=== PATIENT | male | born 1990 | race Caucasian/White ===

== ENCOUNTER 2021-12-04 22:51 | Inpatient (IN) ==
[2021-12-04] MEDS ORDERED: SODIUM CHLORIDE 0.9% 1000ML 1,000 ML IV ONE (23:36)
[2021-12-04] MEDS ORDERED: FAMOTIDINE 20MG IV PUSH 20 MG/5 ML SYR IV STA (23:36)
[2021-12-04] MEDS ORDERED: MULTI-VITAMIN INFUSION 10 ML, THIAMINE HCL 100 MG, FOLIC ACID 1 MG in SODIUM CHLORIDE 0... IV ONE (23:36)
--- NOTE | 2021-12-04 23:40 | Emergency Department Note ---
History of Present Illness General Chief complaint: Alcohol Withdrawal Time Seen by Provider: 12/04/21 23:21 Source: patient Mode of arrival: ambulatory Limitations: no limitations History of Present Illness Provider complaint: alcohol withdrawal This is a 31-year-old male presents the emergency department with concern for alcohol withdrawal. Patient states he has been drinking daily over the last 30 days predominantly hard liquor. Patient does have a history of alcohol abuse over the last 8 years. States his longest sober period was 75 days. Patient has not participated in any inpatient rehab. He states he has gone Alcoholics Anonymous. Patient has not had any inpatient hospitalization for alcohol wit hdrawal. He is uncertain if he has ever had a seizure as he states he has had very significant tremors at times and is also had hallucinations, and vomiting. Patient states his last drink was this afternoon in order to try and ivonne some of the withdrawal symptoms. He states he has been trying to cut back over the course of the last week. He states to the nausea and vomiting he has been unable to tolerate much in the way of oral intake. He estimates he had a total of 100 mL of Pedialyte over the course of today. Patient states he did have some blood with a bowel movement although attributes that to hemorrhoids stating his had this previously. He has not noted any black or bloody emesis. He states he has had fevers or chills. He has not had any hallucinations today. Patient admits to ongoing anxiety which is part of how he believes his alcohol abuse started. He states most recently he is also been trying to use CBD to help with anxiety and withdrawal symptoms. Patient denies any other use of recreational drugs. Pt seen during a time of high acuity and national emergency pandemic while wearing PPE. Home Medications Medication Instructions Recorded Confirmed Type escitalopram oxalate 10 mg tablet 0 mg PO DAILY 12/04/21 12/04/21 History (Lexapro) trazodone 100 mg tablet 0 mg PO HS 12/04/21 12/04/21 History Allergies Allergy/AdvReac Type Severity Reaction Status Date / Time No Known Allergies Allergy Verified 12/04/21 23:18 Past Med/Surg History Medical History (Updated 12/05/21 @ 09:09 by Lita Queen DO) Alcohol abuse Anxiety Social History Smoking Status: Current every day smoker Hx Alcohol Use: Yes Alcohol type: beer and hard liquor Hx Substance Use: Yes Last Used Substance: Just Prior to Arrival Substance Use Type Other:: cbd Preferred Language: Portuguese Directory Carrier Required: No Beliefs That Will Affect Care: None Current Living Situation: Alone Current Living Situation Comment: [facility] Feels Safe at Home: Yes Assistive Devices: None Review of Systems A total of 10 systems reviewed and were otherwise negative All systems reviewed & are unremarkable except as noted in HPI & below Physical Exam Vital Signs Vital Signs - 24 hr 12/04/21 23:02 12/04/21 23:45 12/05/21 00:00 Temperature 36.6 C Temperature Source Oral Pulse Rate 125 H 129 H 115 H Pulse Rate [Right Finger] Pulse Rate from SpO2 Sensor 127 H 116 H Pulse Rhythm [Right Finger] Respiratory Rate 20 21 24 Respiratory Depth Normal Blood Pressure 148/99 H 142/102 H 153/102 H Blood Pressure [Left Arm] Blood Pressure Mean 115 115 119 Blood Pressure Mean [Left Arm] Pulse Oximetry 99 98 98 Oxygen Delivery Method Room Air Sepsis Recent Fever Within 48 Hours No Sepsis New/Unexplained Change in Mental Status N/A Sepsis Action Taken by Nursing No Action Required 12/05/21 00:15 12/05/21 00:16 12/05/21 00:30 Temperature Temperature Source Pulse Rate 154 H 125 H 117 H Pulse Rate [Right Finger] Pulse Rate from SpO2 Sensor 154 H 128 H 117 H Pulse Rhythm [Right Finger] Respiratory Rate 19 23 17 Respiratory Depth Blood Pressure 138/109 H 147/107 H Blood Pressure [Left Arm] Blood Pressure Mean 118 120 Blood Pressure Mean [Left Arm] Pulse Oximetry 97 89 L 97 Oxygen Delivery Method Sepsis Recent Fever Within 48 Hours Sepsis New/Unexplained Change in Mental Status Sepsis Action Taken by Nursing 12/05/21 00:45 12/05/21 01:00 12/05/21 01:15 Temperature Temperature Source Pulse Rate 128 H 122 H 123 H Pulse Rate [Right Finger] 124 H Pulse Rate from SpO2 Sensor 127 H 121 H 122 H Pulse Rhythm [Right Finger] Regular Respiratory Rate 18 23 20 Respiratory Depth Normal Blood Pressure 130/97 155/81 H 148/80 H Blood Pressure [Left Arm] 143/87 H Blood Pressure Mean 108 105 102 Blood Pressure Mean [Left Arm] 105 Pulse Oximetry 98 96 96 Oxygen Delivery Method Room Air Sepsis Recent Fever Within 48 Hours Sepsis New/Unexplained Change in Mental Status Sepsis Action Taken by Nursing 12/05/21 01:30 12/05/21 01:45 12/05/21 02:02 Temperature Temperature Source Pulse Rate 120 H 128 H 112 H Pulse Rate [Right Finger] Pulse Rate from SpO2 Sensor 120 H 128 H Pulse Rhythm [Right Finger] Respiratory Rate 23 18 20 Respiratory Depth Blood Pressure 143/87 H 154/92 H Blood Pressure [Left Arm] Blood Pressure Mean 105 112 Blood Pressure Mean [Left Arm] Pulse Oximetry 95 98 Oxygen Delivery Method Sepsis Recent Fever Within 48 Hours Sepsis New/Unexplained Change in Mental Status Sepsis Action Taken by Nursing 12/05/21 02:15 12/05/21 02:16 12/05/21 02:30 Temperature Temperature Source Pulse Rate 110 H 110 H 110 H Pulse Rate [Right Finger] Pulse Rate from SpO2 Sensor 110 H 109 H 110 H Pulse Rhythm [Right Finger] Respiratory Rate 18 21 19 Respiratory Depth Blood Pressure 125/78 127/87 Blood Pressure [Left Arm] Blood Pressure Mean 93 100 Blood Pressure Mean [Left Arm] Pulse Oximetry 99 100 97 Oxygen Delivery Method Sepsis Recent Fever Within 48 Hours Sepsis New/Unexplained Change in Mental Status Sepsis Action Taken by Nursing 12/05/21 02:45 12/05/21 03:00 12/05/21 03:15 Temperature Temperature Source Pulse Rate 112 H 107 H 104 H Pulse Rate [Right Finger] Pulse Rate from SpO2 Sensor 114 H 107 H 105 H Pulse Rhythm [Right Finger] Respiratory Rate 18 18 25 H Respiratory Depth Blood Pressure 138/89 136/88 115/72 Blood Pressure [Left Arm] Blood Pressure Mean 105 104 86 Blood Pressure Mean [Left Arm] Pulse Oximetry 97 100 98 Oxygen Delivery Method Sepsis Recent Fever Within 48 Hours Sepsis New/Unexplained Change in Mental Status Sepsis Action Taken by Nursing 12/05/21 03:30 Temperature Temperature Source Pulse Rate 111 H Pulse Rate [Right Finger] Pulse Rate from SpO2 Sensor 107 H Pulse Rhythm [Right Finger] Respiratory Rate 14 Respiratory Depth Blood Pressure 132/92 Blood Pressure [Left Arm] Blood Pressure Mean 105 Blood Pressure Mean [Left Arm] Pulse Oximetry 99 Oxygen Delivery Method Sepsis Recent Fever Within 48 Hours Sepsis New/Unexplained Change in Mental Status Sepsis Action Taken by Nursing GENERAL: alert, unwell appearing, well nourished, mild distress, non-toxic EYE EXAM: normal conjunctiva, PERRL and EOM's grossly intact OROPHARYNX: no exudate, no erythema, lips, buccal mucosa, and tongue normal and mucous membranes are dry NECK: supple, no nuchal rigidity, no adenopathy, non-tender LUNGS: Clear to auscultation. Normal chest wall mechanics, no w/r/r HEART: no murmurs, S1 normal and S2 normal ABDOMEN: abdomen soft, generalized abdominal tenderness with palpation, normo- active bowel sounds, no masses, no rebound or guarding. BACK: Back is symmetrical on inspection and there is no deformity, no midline tenderness, no CVA tenderness. SKIN: no rashes and no bruising UPPER EXTREMITIES: upper extremities are grossly normal. FROM, nml pulses b/l. LOWER EXTREMITIES: No pitting edema. FROM, nml pulses b/l. NEURO EXAM: Normal sensorium, cranial nerves II-XII grossly intact, normal speec h, no gross weakness of arms, no gross weakness of legs. Gross sensation intact. Course Course 0125: Pt states medicine helps slightly. Still tachycardic. 0202: Patient states he is feeling slightly improved although is still tachycardic. 0250: Patient with persistent tachycardia and mild tremor. Heart rate is impro elaine compared to initial although still tachycardic. Vital signs otherwise stable. Patient aware of all results and is still agreeable for additional management of his alcohol withdrawal symptoms. 0300: Discussed with Dr. Esquivel for additional inpatient management. Administered Medications Chlordiazepoxide HCl (Chlordiazepoxide 25mg Starting Dose) 25 mg PO Q6H JOSE; Protocol Stop: 12/05/21 23:31 Last Admin: 12/05/21 05:32 Dose: 25 mg Documented by: [id number] Lactated Ringer's (Lr) 1,000 mls @ 100 mls/hr IV .Q10H JOSE Stop: 01/04/22 05:49 Last Admin: 12/05/21 06:38 Dose: 100 mls/hr Documented by: [id number] Lorazepam (Lorazepam 2 Mg/1 Ml Vial) 2 mg IV UD PRN; Protocol PRN Reason: EtOH Withdrawl AWSS Score 8,9 Stop: 01/04/22 05:49 Last Admin: 12/05/21 08:07 Dose: 2 mg Documented by: [id number] Admin: 12/05/21 07:04 Dose: 2 mg Documented by: [id number] Pantoprazole Sodium (Pantoprazole 40 Mg Tab) 40 mg PO BID [facility] Stop: 01/04/22 08:59 Last Admin: 12/05/21 08:07 Dose: 40 mg Documented by: [id number] Discontinued Medications Chlordiazepoxide HCl (Chlordiazepoxide Hcl 25 Mg Cap) 0 mg PO Q6H JOSE; Taper Stop: 12/07/21 05:49 Last Admin: 12/05/21 06:34 Dose: Not Given Documented by: [id number] Diazepam (Diazepam 5 Mg/Ml Inj 10ml Vial) 5 mg IV NOW STA Stop: 12/04/21 23:37 Last Admin: 12/04/21 23:47 Dose: 5 mg Documented by: [id number] Diazepam (Diazepam 5 Mg/Ml Inj 10ml Vial) 10 mg IV NOW STA Stop: 12/05/21 00:30 Last Admin: 12/05/21 00:38 Dose: 10 mg Documented by: [id number] Diazepam (Diazepam 5 Mg/Ml Inj 10ml Vial) 10 mg IV NOW STA Stop: 12/05/21 01:29 Last Admin: 12/05/21 01:40 Dose: 10 mg Documented by: [id number] Diazepam (Diazepam 5 Mg/Ml Inj 10ml Vial) 10 mg IV NOW STA Stop: 12/05/21 02:51 Last Admin: 12/05/21 03:38 Dose: 10 mg Documented by: [id number] Diazepam (Diazepam 5 Mg/Ml Inj 10ml Vial) 15 mg IV NOW STA Stop: 12/05/21 04:26 Last Admin: 12/05/21 04:50 Dose: 15 mg Documented by: [id number] Sodium Chloride (Nss 1000ml) 1,000 mls @ 999 mls/hr IV .Q1H1M ONE Stop: 12/05/21 00:36 Last Infusion: 12/04/21 23:59 Dose: 0 mls/hr Documented by: [id number] Admin: 12/04/21 23:51 Dose: 999 mls/hr Documented by: [id number] Famotidine (Pepcid 20mg Iv Push) 20 mg in 5 mls @ 2.5 mls/min IV NOW STA Stop: 12/04/21 23:37 Last Admin: 12/04/21 23:48 Dose: 2.5 mls/min Documented by: [id number] Multivitamins 10 ml/ Thiamine HCl 100 mg/ Folic Acid 1 mg/Sodium Chloride 1,011.2 mls @ 200 mls/hr IV .Q5H4M ONE Stop: 12/05/21 04:39 Last Infusion: 12/05/21 05:08 Dose: 0 mls/hr Documented by: [id number] Admin: 12/05/21 00:01 Dose: 200 mls/hr Documented by: [id number] Sodium Chloride (Nss 1000ml) 1,000 mls @ 999 mls/hr IV .Q1H1M ONE Stop: 12/05/21 02:28 Last Infusion: 12/05/21 03:00 Dose: 0 mls/hr Documented by: [id number] Admin: 12/05/21 01:42 Dose: 999 mls/hr Documented by: [id number] Phytonadione 2.5 mg/ Dextrose 50.25 mls @ 100.5 mls/hr IV ONE ONE Stop: 12/05/21 05:44 Last Infusion: 12/05/21 08:25 Dose: 0 mls/hr Documented by: [id number] Admin: 12/05/21 06:39 Dose: 100.5 mls/hr Documented by: [id number] Thiamine HCl 500 mg/ Sodium (Chloride) 55 mls @ 220 mls/hr IV NOW ONE Stop: 12/05/21 05:29 Last Infusion: 12/05/21 07:03 Dose: 0 mls/hr Documented by: [id number] Admin: 12/05/21 06:39 Dose: 220 mls/hr Documented by: [id number] Sodium Chloride (Nss 1000ml) 1,000 mls @ 125 mls/hr IV .Q8H JOSE Stop: 01/04/22 05:14 Last Admin: 12/05/21 06:34 Dose: Not Given Documented by: [id number] Critical Care Time Critical Care Time: Yes Total Critical Care Time: 45 Critical care of 45 min performed to assess and manage high likelihood of life- threatening alcohol withdrawal, involving labs and imaging performed with assessment to evaluate alcohol withdrawal diagnosis with frequent reassessment. This time includes bedside time, treatment discussions with patient/family/consultants, documentation time and excludes procedure time. Medical Decision Making Differential Diagnosis Differential diagnosis includes etiologies such as alcohol intoxication, toxicol ogic, infection, hypoglycemia, electrolyte abnormalities, cardiac sources, intracerebral event, neurologic, as well as others were entertained. Medical Records Attestation: I reviewed the patient's medical records. Home Medications Current Medication List: was personally reviewed by me Laboratory Data Attestation: I reviewed the patient's lab results. Result diagrams: 12/05/21 07:19 12/05/21 07:19 Lab Results 12/04/21 12/04/21 12/04/21 Range/Units 23:20 23:20 23:20 WBC 6.40 (4.8-10.8) K/uL RBC 5.84 (4.7-6.1) M/uL Hgb 18.8 H (14.0-18.0) g/dL Hct 51.1 (42-52) % MCV 87.5 (80-100) fL MCH 32.2 (25-34) pg MCHC 36.8 H (32-36) g/dL RDW Std Deviation 42.7 (36.4-46.3) fL RDW Coeff of Teresita 13.3 (11.5-14.5) % Plt Count 261 (130-400) K/uL MPV 11.6 H (7.4-10.4) fL Immature Gran % (Auto) 0.0 % Neut % (Auto) 42.9 % Lymph % (Auto) 43.3 % [place] % (Auto) 13.6 % Eos % (Auto) 0.0 % Baso % (Auto) 0.2 % Neut # (Auto) 2.75 (1.4-6.5) K/uL Lymph # (Auto) 2.77 (1.2-3.4) K/uL [place] # (Auto) 0.87 H (0.11-0.59) K/uL Eos # (Auto) 0.00 (0-0.5) K/uL Baso # (Auto) 0.01 (0-0.2) K/uL Immature Gran # (Auto) 0.00 (0.00-0.02) K/uL PT 15.3 H (9.0-12.0) Seconds INR 1.5 H (0.9-1.1) Sodium 127 L (136-145) mmol/L Potassium 3.6 (3.5-5.1) mmol/L Chloride 82 L (98-107) mmol/L Carbon Dioxide 29 (21-32) mmol/L Anion Gap 16 H (3-11) BUN 16 (6-23) mg/dl Creatinine 1.09 (0.6-1.4) mg/dl Est Cr Clr Drug Dosing 132.6 ml/min Est GFR ( Amer) 105.7 ml/min Est GFR (Non-Af Amer) 91.2 ml/min BUN/Creatinine Ratio 14.7 (10-20) Glucose 203 H (70-99(Fasting)) mg/dl Calcium 9.1 (8.5-10.1) mg/dl Magnesium 2.3 (1.7-2.4) mg/dl Total Bilirubin 2.9 H (0.2-1.0) mg/dl AST 173 H (13-39) U/L ALT 215 H (7-52) U/L Alkaline Phosphatase 109 H (34-104) U/L Troponin I High Sens 12.2 (0-20) pg/ml Total Protein 6.7 (6.0-8.3) gm/dl Albumin 3.7 (3.4-5.0) gm/dl Globulin 3.0 (2.5-4.0) gm/dl Albumin/Globulin Ratio 1.2 (0.9-2) Lipase 40 (11-82) U/L TSH (0.300-4.500) uIu/ml Urine Color Urine Appearance (Clear) Urine pH (4.5-7.5) Ur Specific [place] (1.000-1.030) Urine Protein (Negative) Urine Glucose (UA) (Negative) Urine Ketones (Negative) Urine Blood (Negative) Urine Nitrite (Negative) Urine Bilirubin (Negative) Urine Urobilinogen (Negative) Ur Leukocyte Esterase (Negative) Urine WBC (Auto) (0-5) /hpf Urine RBC (Auto) (0-4) /hpf U Hyaline Cast (Auto) (0-5) /lpf U Epithel Cells (Auto) (0-5) /lpf Urine Bacteria (Auto) (Negative) Urine Opiates Screen (Neg) Ur Methadone, Qual (Neg) Urine Barbiturates (Neg) Ur Phencyclidine (PCP) (Neg) U Amphetamin/Meth Scrn (Neg) MDMA (Ecstasy) Screen (Neg) U Benzodiazepines Scrn (Neg) Ur Cocaine Metabolite (Neg) U Marijuana (THC) Screen (Neg) Ethyl Alcohol mg/dL (<10.0) mg/dl 12/04/21 12/04/21 12/05/21 Range/Units 23:20 23:20 00:15 WBC (4.8-10.8) K/uL RBC (4.7-6.1) M/uL Hgb (14.0-18.0) g/dL Hct (42-52) % MCV (80-100) fL MCH (25-34) pg MCHC (32-36) g/dL RDW Std Deviation (36.4-46.3) fL RDW Coeff of Teresita (11.5-14.5) % Plt Count (130-400) K/uL MPV (7.4-10.4) fL Immature Gran % (Auto) % Neut % (Auto) % Lymph % (Auto) % [place] % (Auto) % Eos % (Auto) % Baso % (Auto) % Neut # (Auto) (1.4-6.5) K/uL Lymph # (Auto) (1.2-3.4) K/uL [place] # (Auto) (0.11-0.59) K/uL Eos # (Auto) (0-0.5) K/uL Baso # (Auto) (0-0.2) K/uL Immature Gran # (Auto) (0.00-0.02) K/uL PT (9.0-12.0) Seconds INR (0.9-1.1) Sodium (136-145) mmol/L Potassium (3.5-5.1) mmol/L Chloride (98-107) mmol/L Carbon Dioxide (21-32) mmol/L Anion Gap (3-11) BUN (6-23) mg/dl Creatinine (0.6-1.4) mg/dl Est Cr Clr Drug Dosing ml/min Est GFR ( Amer) ml/min Est GFR (Non-Af Amer) ml/min BUN/Creatinine Ratio (10-20) Glucose (70-99(Fasting)) mg/dl Calcium (8.5-10.1) mg/dl Magnesium (1.7-2.4) mg/dl Total Bilirubin (0.2-1.0) mg/dl AST (13-39) U/L ALT (7-52) U/L Alkaline Phosphatase (34-104) U/L Troponin I High Sens (0-20) pg/ml Total Protein (6.0-8.3) gm/dl Albumin (3.4-5.0) gm/dl Globulin (2.5-4.0) gm/dl Albumin/Globulin Ratio (0.9-2) Lipase (11-82) U/L TSH 1.257 (0.300-4.500) uIu/ml Urine Color Urine Appearance (Clear) Urine pH (4.5-7.5) Ur Specific [place] (1.000-1.030) Urine Protein (Negative) Urine Glucose (UA) (Negative) Urine Ketones (Negative) Urine Blood (Negative) Urine Nitrite (Negative) Urine Bilirubin (Negative) Urine Urobilinogen (Negative) Ur Leukocyte Esterase (Negative) Urine WBC (Auto) (0-5) /hpf Urine RBC (Auto) (0-4) /hpf U Hyaline Cast (Auto) (0-5) /lpf U Epithel Cells (Auto) (0-5) /lpf Urine Bacteria (Auto) (Negative) Urine Opiates Screen Neg (Neg) Ur Methadone, Qual Neg (Neg) Urine Barbiturates Neg (Neg) Ur Phencyclidine (PCP) Neg (Neg) U Amphetamin/Meth Scrn Neg (Neg) MDMA (Ecstasy) Screen Neg (Neg) U Benzodiazepines Scrn Neg (Neg) Ur Cocaine Metabolite Neg (Neg) U Marijuana (THC) Screen Pos H (Neg) Ethyl Alcohol mg/dL 222.4 H (<10.0) mg/dl 12/05/21 Range/Units 00:15 WBC (4.8-10.8) K/uL RBC (4.7-6.1) M/uL Hgb (14.0-18.0) g/dL Hct (42-52) % MCV (80-100) fL MCH (25-34) pg MCHC (32-36) g/dL RDW Std Deviation (36.4-46.3) fL RDW Coeff of Teresita (11.5-14.5) % Plt Count (130-400) K/uL MPV (7.4-10.4) fL Immature Gran % (Auto) % Neut % (Auto) % Lymph % (Auto) % [place] % (Auto) % Eos % (Auto) % Baso % (Auto) % Neut # (Auto) (1.4-6.5) K/uL Lymph # (Auto) (1.2-3.4) K/uL [place] # (Auto) (0.11-0.59) K/uL Eos # (Auto) (0-0.5) K/uL Baso # (Auto) (0-0.2) K/uL Immature Gran # (Auto) (0.00-0.02) K/uL PT (9.0-12.0) Seconds INR (0.9-1.1) Sodium (136-145) mmol/L Potassium (3.5-5.1) mmol/L Chloride (98-107) mmol/L Carbon Dioxide (21-32) mmol/L Anion Gap (3-11) BUN (6-23) mg/dl Creatinine (0.6-1.4) mg/dl Est Cr Clr Drug Dosing ml/min Est GFR ( Amer) ml/min Est GFR (Non-Af Amer) ml/min BUN/Creatinine Ratio (10-20) Glucose (70-99(Fasting)) mg/dl Calcium (8.5-10.1) mg/dl Magnesium (1.7-2.4) mg/dl Total Bilirubin (0.2-1.0) mg/dl AST (13-39) U/L ALT (7-52) U/L Alkaline Phosphatase (34-104) U/L Troponin I High Sens (0-20) pg/ml Total Protein (6.0-8.3) gm/dl Albumin (3.4-5.0) gm/dl Globulin (2.5-4.0) gm/dl Albumin/Globulin Ratio (0.9-2) Lipase (11-82) U/L TSH (0.300-4.500) uIu/ml Urine Color [place] Urine Appearance Cloudy A (Clear) Urine pH 8.5 H (4.5-7.5) Ur Specific [place] 1.018 (1.000-1.030) Urine Protein Negative (Negative) Urine Glucose (UA) Negative (Negative) Urine Ketones Negative (Negative) Urine Blood Negative (Negative) Urine Nitrite Negative (Negative) Urine Bilirubin Negative (Negative) Urine Urobilinogen Negative (Negative) Ur Leukocyte Esterase Trace H (Negative) Urine WBC (Auto) 0 (0-5) /hpf Urine RBC (Auto) 0-4 (0-4) /hpf U Hyaline Cast (Auto) 1-5 (0-5) /lpf U Epithel Cells (Auto) 0-5 (0-5) /lpf Urine Bacteria (Auto) Negative (Negative) Urine Opiates Screen (Neg) Ur Methadone, Qual (Neg) Urine Barbiturates (Neg) Ur Phencyclidine (PCP) (Neg) U Amphetamin/Meth Scrn (Neg) MDMA (Ecstasy) Screen (Neg) U Benzodiazepines Scrn (Neg) Ur Cocaine Metabolite (Neg) U Marijuana (THC) Screen (Neg) Ethyl Alcohol mg/dL (<10.0) mg/dl ECG Data Attestation: I personally reviewed and interpreted this ECG as follows: Indication: + vomiting Rate (beats per minute): 113 Rhythm: + sinus tachycardia ECG Intervals/blocks: + Normal QRS and + Normal QT ECG [place]: + Normal ECG ST segments: + Nonspecific ST abnormalities MDM Narrative An order was placed for continuous cardiac monitoring. The monitor shows a rate of _126_ with _sinus tachycardia rhythm. This is a 31 yo who presents emergency department with concern for alcohol wi thdrawal. Patient with obvious clinical symptoms of alcohol withdrawal while still intoxicated based on labs. Labs drawn and sent and did reveal an elevated INR as well as likely alcoholic hepatitis. Patient had no recurrent vomiting while in the emergency room. Patient was given multiple doses of IV Valium to help begin to control his symptoms. He was provided with IV fluid rehydration due to reported poor intake over the last 3 days. Patient also given IV banana bag. No other significant electrolyte abnormalities noted. No other ectopy or dysrhythmia on telemetry. I do not suspect occult infection. Case discussed with hospitalist for additional evaluation and management. Impression & Plan Alcohol withdrawal, Alcohol abuse, Alcoholic hepatitis, Hyponatremia, Elevated INR, Alcoholic intoxication Discharge Plan Visit Data Chief Complaint: Alcohol Withdrawal ED Provider: Lita Queen Discharge Problem: Alcohol withdrawal, Alcohol abuse, Alcoholic hepatitis, Hyponatremia, Elevated INR, Alcoholic intoxication Patient Disposition: Admitted As Inpatient Discharge Instructions Interventions: ED Discharge Assessment Last Done: 12/05/21 05:35 Discharge Problem: Alcohol withdrawal Qualifiers: Complication of substance-induced condition: with unspecified complication Qualified Code(s): F10.239 - Alcohol dependence with withdrawal, unspecified Alcoholic hepatitis Qualifiers: Ascites presence: unspecified Qualified Code(s): K70.10 - Alcoholic hepatitis without ascites Alcoholic intoxication Qualifiers: Complication of substance-induced condition: uncomplicated Qualified Code(s): F10.920 - Alcohol use, unspecified with intoxication, uncomplicated
[2021-12-04 23:58] LABS: Basophils # (auto) 0.01 K/uL (0-0.2); Basophils % (auto) 0.2 %; Hematocrit (blood only) 51.1 % (42-52); Hemoglobin 18.8 g/dL (14.0-18.0); Lymphocytes # (auto) 2.77 K/uL (1.2-3.4); Lymphocytes % (auto) 43.3 %; Mean Corpuscular Hemoglobin 32.2 pg (25-34); Mean Corpuscular Hgb Conc 36.8 g/dL (32-36); Mean Corpuscular Volume 87.5 fL (80-100); Mean Platelet Volume 11.6 fL (7.4-10.4); Monocytes # (auto) 0.87 K/uL (0.11-0.59); Monocytes % (auto) 13.6 %; Neutrophils # (auto) 2.75 K/uL (1.4-6.5); Neutrophils % (auto) 42.9 %; Platelet Count 261 K/uL (130-400); RDW Coefficient of Variation 13.3 % (11.5-14.5); RDW Standard Deviation 42.7 fL (36.4-46.3); Red Blood Count 5.84 M/uL (4.7-6.1)
[2021-12-05 00:01] LABS: INR 1.5 (0.9-1.1); Prothrombin Time 15.3 Seconds (9.0-12.0)
[2021-12-05 00:15] LABS: Albumin Globulin Ratio 1.2 (0.9-2); Albumin Level 3.7 gm/dl (3.4-5.0); BUN Creatinine Ratio 14.7 (10-20); Bilirubin,Total 2.9 mg/dl (0.2-1.0); Calcium 9.1 mg/dl (8.5-10.1); Creatinine Clr Calc Pharmacy 132.6 ml/min; Est GFR (African American) 105.7 ml/min; Est GFR (Non-African American) 91.2 ml/min; Magnesium 2.3 mg/dl (1.7-2.4); Potassium 3.6 mmol/L (3.5-5.1); Total Protein 6.7 gm/dl (6.0-8.3); Troponin I High Sensitivity 12.2 pg/ml (0-20)
[2021-12-05 00:40] LABS: Appearance Urine Cloudy (Clear); Bacteria Urine Automated Negative (Negative); Bilirubin Urine Negative (Negative); Blood Urine Negative (Negative); Color Urine Orange; Epithelial Cell Urine Auto 0-5 /lpf (0-5); Glucose Urine UA Negative (Negative); Ketones Urine Negative (Negative); Leukocyte Esterase Urine Trace (Negative); Nitrite Urine Negative (Negative); Protein Urine Negative (Negative); RBC Urine Automated 0-4 /hpf (0-4); Specific Gravity Urine 1.018 (1.000-1.030); Urobilinogen Urine Negative (Negative); WBC Urine Automated 0 /hpf (0-5); pH Urine 8.5 (4.5-7.5)
[2021-12-05 01:07] LABS: Amphetamines+Metham, Urine Neg (Neg); Barbiturates, Urine Neg (Neg); Benzodiazepine, Urine Neg (Neg); Cocaine, Urine Neg (Neg); MDMA (Ecstacy), Urine Neg (Neg); Methadone, Urine Neg (Neg); Opiate, Urine Neg (Neg); Phencyclidine, Urine Neg (Neg)
[2021-12-05] MEDS ORDERED: SODIUM CHLORIDE 0.9% 1000ML 1,000 ML IV ONE (01:28)
--- NOTE | 2021-12-05 03:19 | History & Physical Report ---
Date of Service December 05, 2021 Assessment & Plan (1) Alcohol withdrawal: Plan: This is a 31-year-old male with a history of alcohol abuse who presents to [facility] for evaluation of alcohol withdrawal in the context of 10 days of weening from ~17-20 drinks/day to 10-15 drinks/day. In the ED, he was minimally responsive to high doses of Valium. He was also found to have laboratory evidence of alcoholic hepatitis. Given his high risk for DTs and severe EtOH withdrawal, he will be transferred to ICU. Alcohol Withdrawal 10 days worth of cutting down from approx. 17-20 drinks/day --> 10-15 drinks/day; last drink 12/04/21 at 1800 Presented with significant symptoms of alcohol withdrawal, including tremors, diaphoresis, anxiety, hypertension, tachycardia In the ED, symptoms and vital signs were minimally responsive to high doses of Valium (>45mg given) Patient is high risk for severe alcohol withdrawal and delirium tremens with his consumption history and present symptoms Continue Librium taper (liver disease dosing for now), AWSS Ativan IV prn protocol for now Transfer to ICU for further monitoring, possible sedation/drip Daily folate, thiamine, multivitaminmonitor BMP, mag, Phos Will require further discussion regarding rehabilitation, long-term treatment for alcohol withdrawal including naltrexone and other agents, when appropriate (2) Alcoholic hepatitis: Plan: On admission, appreciated to have TBili 2.9, ALT 215, AST 173, ALP 109, lipase normal at 40, platelet 261, INR 1.5, albumin 3.7, Na 127, Cr 1.09 In the context of significant alcohol use over the last month, labs and history of nausea, vomiting consistent with acute hepatitis Nickdrey 25 -- does not meet criteria for steroids or pentoxifylline at present MELD 24; Child Schuler 6 (Class A) Check ultrasound right upper quadrant Monitor CMP, INR Judicious use of hepatotoxic medications Give thiamine 500mg IV x 1 now, give vitamin K 2.5mg IV x 1 now At present, abdominal pain most likely consistent with alcoholic hepatitis. Lipase negative. If worsening despite ongoing therapy, may wish to obtain ultrasound/CT for pancreatic evaluation. (3) Hyponatremia: Plan: Clinically appears dry on exam. No evidence of hypervolemia. Suspect secondary to hypovolemia/poor p.o. intake in the setting of alcohol abuse, as above. Hepatitis may also be contributing. Continue fluid resuscitation If hyponatremia does not improve despite fluid resuscitation, can consider calculating FENa and obtaining Sosm, Uosm (4) Anxiety: Plan: Hold home medications while acute episode is resolving. Continue benzodiazepine therapy, as above Following resolution of his acute issues, will require further investigation/discussion about his anxiety and current management. He mentioned to ED provider that alcohol use is the way he calms his anxiety. (5) Elevated INR: Plan: Insetting of suspected alcoholic hepatitis/transaminitis Give vitamin K 2.5 mg IV X1, can consider further doses as needed Monitor on daily labs Plan: Code: full code Diet: NPO PPX: Contraindicated in setting of coagulopathy ; Protonix 40 daily Dispo: ICU History of Present Illness Primary Care Provider: ,JOAN PCP This is a 31-year-old male with a history of alcohol abuse who presents to [facility] for evaluation of alcohol withdrawal. Patient says that he has a penitentiary history of issues with alcohol (>8 years). Patient says that over the last 10 days, he is been trying to wean himself off of alcohol. He says at the beginning of the month, his baseline was consuming about 750 cc rye whiskey per day (17 drinks); he then wean to 325 cc rye whiskey per day (about 9 drinks), thereafter to 3-4 four locos (15-20 standard drinks), followed by (within the last 10 days) ~6 twisted teas (5% EtOH) / day with some four lokos intermixed and Guiness beer. His last drink was 12/04/2021 at 1800. He says he has consumed CBD oil over this time as well. No recreational drugs. Over the last 10 days, he does report that he has had intermittent nausea with vomiting. He denies hematemesis. Does say that he has had waxing and waning abdominal pain associated with his drinking. He has not been able to keep much down because of the nausea. Patient also reports that he did have a single bowel movement with some blood intermixed yesterday, but he has had this before from hemorrhoidal source. At present, his most irritating symptoms are the tremor and nausea. He denies any descriptions of hallucinations at present. He does endorse a history of hallucinations with alcohol withdrawal in the past. He denies any formal history of alcohol withdrawal seizures. He denies being hospitalized in the past for withdrawal. He has attended Alcoholic Anonymous in the past. To the emergency physician, he stated that his alcohol abuse likely started as a result of his anxiety. His longest sober period was approx. 75 days. In the ED, patient found to be tachycardic to the 120s, with regular respiratory rate, hypertension to 140/80, saturating appropriately on room air. On admission, patient found to have hemoglobin 18.8, MCV 88, INR 1.5, sodium 127/CL 82, anion gap 16, glucose 203, total bilirubin 2.9, AST 173, ALT 215, ALP 109, albumin 3.7. Urine is orange and cloudy in appearance with trace leuk esterase, negative red blood cells, pH 8.5. Urine THC resulted positive. Alcohol level on admission was 222. He received a total of 45 mg of diazepam in the ED with minimal relief of symptoms and persistent ongoing tachycardia. Given his extensive drinking history, poor response to diazepam, and high risk for DTs, attending physician did speak with on-call heading maker, who accepted patient to ICU. Allergies Allergy/AdvReac Type Severity Reaction Status Date / Time No Known Allergies Allergy Verified 12/04/21 23:18 Home Medications Medication Instructions Recorded Confirmed Type escitalopram oxalate 10 mg tablet 0 mg PO DAILY 12/04/21 12/04/21 History (Lexapro) trazodone 100 mg tablet 0 mg PO HS 12/04/21 12/04/21 History Past Med/Surg History Medical History (Updated 12/05/21 @ 06:36 by GEO Dennison) Alcohol abuse Anxiety Social History Smoking Status: Current every day smoker Hx Alcohol Use: Yes Alcohol type: beer and hard liquor Hx Substance Use: Yes Last Used Substance: Just Prior to Arrival Substance Use Type Other:: cbd Preferred Language: Surinamese 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 HEENT: NCAT. - Eyes - Sclera are white, anicteric, and without injection. PERRL. - Mouth - MMM with no tonsillar edema or exudates. - Neck - no JVD. Cardiac: Tachycardic with regular rhythm; S1 and S2 present with no murmurs, rubs, or gallops. Pulmonary: Good respiratory effort with symmetric expansion of the chest. No use of accessory muscles. Lungs were clear to auscultation bilaterally with no crackles or wheezes. Abdominal: Normoactive bowel sounds. Abdomen was soft, nondistended, and mildly TTP in the RLQ. Oklee negative. Extremities: Upper and lower extremities are warm and well perfused. Radial and dorsalis pedis pulses were 2+ b/l. Results & Data Results & Data ([facility]) Vital Signs (Past 12 Hours) Vital Signs Temp Pulse Pulse Resp BP BP Pulse Ox 12/05/21 01:00 124 H 18 143/87 H 93 12/04/21 23:02 36.6 C 125 H 20 148/99 H 99 Supervising Physician Co-Signing Physician Notes Patient seen and examined, chart reviewed, case discussed with Dr. Yanes and I agree with the assessment/plan as above. Still tremulous, tachycardic. Has received Valium x 45mg IV Admit to MICU Continue Benzos Thiamine Remainder as above Resident Activity Tracking Resident Involvement: Resident Care Provided Care Provided: Adult Hospital Medicine
[2021-12-05] MEDS ORDERED: ACETAMINOPHEN 325 MG TAB PO PRN (03:39)
[2021-12-05] MEDS ORDERED: chlordiazePOXIDE ALCOHOL WITHDRAWL 25MG PO STA (03:48)
--- NOTE | 2021-12-05 04:30 | Billing Data ---
Date of Service December 05, 2021 Coding Level of Care Code 77154 Initial Inpt Care Lvl 2
[2021-12-05] MEDS ORDERED: PHYTONADIONE 2.5 MG in DEXTROSE 5% 50 ML IV ONE (05:15)
[2021-12-05] MEDS ORDERED: THIAMINE HCL 500 MG in SODIUM CHLORIDE 0.9% 50 ML IV ONE (05:15)
[2021-12-05] MEDS ORDERED: SODIUM CHLORIDE 0.9% 1000ML 1,000 ML IV SCH (05:15)
[2021-12-05] MEDS: CHLORDIAZEPOXIDE 25MG STARTING DOSE PO SCH ×3 (05:32→17:47)
[2021-12-05] MEDS ORDERED: ATIVAN IV ALCOHOL WITHDRAWL IV PRN (05:50)
[2021-12-05] MEDS ORDERED: chlordiazePOXIDE HCl 25 MG CAP PO SCH (05:50)
[2021-12-05] MEDS ORDERED: LORazepam 2 MG/1 ML VIAL IV PRN (05:50)
--- NOTE | 2021-12-05 06:25 | Critical Care Consultation ---
Date of Consultation December 05, 2021 Assessment & Plan (1) Alcohol withdrawal: Impression: 31-year-old male with 8-year history of alcohol abuse presents to the ICU and alcohol withdrawal and acute alcoholic hepatitis. Patient experiencing refractory DTs and transferred to the ICU for further management. Neuro - Alcohol withdrawalpatient experiencing refractory DTs after requiring high-dose Valium in the ED with continued DT symptoms -Received banana bag in ED. Continue thiamine, multivitamin, folate - continue RHYS S with IV Ativan, Librium. If DTs persist will add additional Precedex -Seizure precautions -Monitor in ICU for now Cardiac - Sinus tachycardialikely secondary to alcohol withdrawal with the patient's heart rate in the low 100s. Continue to monitor on telemetry for now Respiratory - No history of pulmonary disease and patient maintaining oxygen saturation on room air without labored breathing. Continuous monitoring on pulse ox for now GI - Alcoholic gastritispatient with complaints of abdominal pain and vomiting associated with drinking alcohol. Denies hematemesis. Started on PPI. Keep n.p.o. for now Acute alcoholic hepatitispatient with elevated LFTs, bilirubin with right upper quadrant abdominal pain with palpation -Mild jaundice in the patient's sclera noted on exam -Ammonia pending -Did encourage patient to completely abstain from further alcohol consumption. Patient states he would like to stop drinking and would like to attend rehab after discharge. Case management consulted -MELD 24 -Lipase within normal limits -Received vitamin K 2.5 mg IV in the ED -Liver ultrasound pending -Continue to trend LFTs and INR for now RENAL/LYTES - Creatinine within normal limits, monitor routine BMPs and replete electrolytes as indicated Hyponatremiamild, patient with sodium 127 likely secondary to liver failure/alcohol dependence. Continue with NSS at 125 mL/h monitor - Strict I's and O's ENDO - No history of diabetes or thyroid disease. ICU hyperglycemic protocol HEME - H&H stable, monitor routine CBCs ID - No indication for infectious process at this time LINES/IV ACCESS - Peripheral IVs DVT PROPHYLAXIS - SCDs Thank you for allowing us to participate in the care of this patient. Please refer to my attending physician's documentation for any further recommendations. (2) Hyponatremia: (3) Alcoholic hepatitis: (4) Anxiety: (5) Alcohol abuse: (6) Elevated INR: (7) Alcoholic gastritis: Supervising Physician Co-Signing Physician Notes Patient seen and examined. Discussed with CC BRADEN and on MDR with bedside CC RN as well as with FP resident. Agree with AP as noted. Patient presented with acute alcohol intoxication. Is too early in his clinical course to exhibit significant alcohol withdrawal. There was concern that he would require escalating doses of benzodiazepines or potential alternative medications which prompted admission to the ICU. He is hemodynamically stable. This morning he is awake alert and conversant. He is able to provide appropriate history and is oriented to person place and time. No evidence of autonomic instability. We will continue to monitor at this point time. Judicious benzodiazepines as needed. The patient's risk of alcohol withdrawal will peak within the next 48 to 72 hours. Continue thiamine and folate. Will calculate his discriminant score to assess whether Pentoxil filing or adjuvant steroids may be warranted. Hepatitis serologies. May need GI consultation. Elevated lactate likely secondary to impaired lactate clearance due to hepatic dysfunction. No indication for antimicrobials currently Suspect the patient can likely transfer to the floor later this afternoon or tomorrow depending on clinical course. History of Present Illness Attending Physician: Patricia Esquivel DO History of Present Illness Patient is a 31-year-old male with past medical history of alcohol abuse who presented to the emergency department earlier this evening with worsening symptoms of alcohol withdrawal. Patient states that he drank 2 beers at 6 PM yesterday evening, and that he is recently try to wean back from his normal daily intake of 15-20 drinks, primarily beer. Patient states that he was previously drinking whiskey, but switched to beer due to abdominal pain and vomiting. Patient states that he is had intermittent nausea and vomiting over the past week. He claims he went to AA meetings approximately 2 months ago after sustaining from alcohol and going through withdrawals in which he became jaundiced. I was notified by the primary team that he had received high doses of Valium in the ED and was still exhibiting symptoms of DTs and lab work consistent with acute alcoholic hepatitis. Patient is now being transferred to ICU for further management at this time. On arrival to the ICU the patient is still alert and oriented and denies any hallucinations. He does have significant tremors and appears very anxious. Currently he denies any headache, dizziness, recent fevers, sore throat, cough, shortness of breath, chest pain or palpitations or swelling in hands and feet. He does report significant abdominal pain with palpation to the right upper quadrant Allergies Allergy/AdvReac Type Severity Reaction Status Date / Time No Known Allergies Allergy Verified 12/04/21 23:18 Home Medications Medication Instructions Recorded Confirmed Type escitalopram oxalate 10 mg tablet 0 mg PO DAILY 12/04/21 12/04/21 History (Lexapro) trazodone 100 mg tablet 0 mg PO HS 12/04/21 12/04/21 History Patient History Medical History (Updated 12/05/21 @ 09:09 by Lita Queen DO) Alcohol abuse Anxiety Social History Smoking Status: Current every day smoker Hx Alcohol Use: Yes Alcohol type: beer and hard liquor Hx Substance Use: Yes Last Used Substance: Just Prior to Arrival Substance Use Type Other:: cbd Preferred Language: Cameroonian Senior Applications Developer Required: No Beliefs That Will Affect Care: None Current Living Situation: Alone Current Living Situation Comment: hotel Feels Safe at Home: Yes Assistive Devices: None Review of Systems Review of Systems: All systems reviewed & are unremarkable except as noted in HPI & below Physical Exam Constitutional: cooperative and + diaphoretic; + uncomfortable Eyes: Jaundiced sclera ENMT: external ear and nose normal, oropharynx normal Neck: trachea midline, no thyromegaly Respiratory: normal respiratory effort, lungs clear to auscultation Cardiovascular: Rate/Rhythm: regular rhythm and + tachycardic Heart Sounds: normal S1 and normal S2 Vessels: no JVD Extremities: no edema Gastrointestinal (Abdomen): Inspection/Auscultation: abdomen not distended and no abdominal edema Bowel sounds present all 4 quadrants. Abdomen tender to light palpation in the right upper quadrant. Musculoskeletal: no cyanosis or clubbing, extremities motor strength 5/5 Skin: no rashes, warm and dry Neurologic: PERRL, EOMI, accommodation nl, no face palsy, no dysarthria Psychiatric: Orientation: oriented x 3 Eye Contact: + fair eye contact Motor Behavior: + psychomotor agitation Speech: + pressured speech Affect: + anxious affect Results & Data Results & [facility] ([facility]) Vital Signs (Past 12 Hours) Vital Signs Temp Pulse Pulse Resp BP BP Pulse Ox 12/05/21 05:30 109 H 22 135/92 96 12/05/21 05:15 111 H 22 135/97 98 12/05/21 05:00 104 H 19 143/105 H 99 12/05/21 04:45 119 H 17 97 12/05/21 04:31 109 H 19 189/129 H 86 L 12/05/21 04:30 103 H 14 100 12/05/21 04:15 108 H 18 161/111 H 99 12/05/21 04:00 106 H 15 156/123 H 97 12/05/21 03:47 111 H 21 96 12/05/21 03:30 111 H 14 132/92 99 12/05/21 03:15 104 H 25 H 115/72 98 12/05/21 03:00 107 H 18 136/88 100 12/05/21 02:45 112 H 18 138/89 97 12/05/21 02:30 110 H 19 127/87 97 12/05/21 02:16 110 H 21 125/78 100 12/05/21 02:15 110 H 18 99 12/05/21 02:02 112 H 20 12/05/21 01:45 128 H 18 154/92 H 98 12/05/21 01:30 120 H 23 143/87 H 95 12/05/21 01:15 123 H 20 148/80 H 96 12/05/21 01:00 122 H 124 H 23 155/81 H 143/87 H 96 12/05/21 00:45 128 H 18 130/97 98 12/05/21 00:30 117 H 17 147/107 H 97 12/05/21 00:16 125 H 23 138/109 H 89 L 12/05/21 00:15 154 H 19 97 12/05/21 00:00 115 H 24 153/102 H 98 12/04/21 23:45 129 H 21 142/102 H 98 12/04/21 23:02 36.6 C 125 H 20 148/99 H 99 Coding Level of Care Code 82806 Inpt Consult Level 4 Diagnoses Hyponatremia E87.1 Alcoholic hepatitis K70.10 Alcohol withdrawal F10.239 Anxiety F41.9 Alcohol abuse F10.10 Elevated INR R79.1 Alcoholic gastritis K29.20
[2021-12-05] MEDS: LACTATED RINGER'S 1,000 ML IV SCH ×2 (06:38→17:00)
[2021-12-05] MEDS: LORazepam 2 MG/1 ML VIAL IV PRN ×5 (07:04→22:24)
[2021-12-05 07:37] LABS: Basophils # (auto) 0.02 K/uL (0-0.2); Basophils % (auto) 0.2 %; Hematocrit (blood only) 43.3 % (42-52); Hemoglobin 15.6 g/dL (14.0-18.0); Immature Granulocytes # (auto) 0.01 K/uL (0.00-0.02); Immature Granulocytes % (auto) 0.1 %; Lymphocytes # (auto) 3.52 K/uL (1.2-3.4); Lymphocytes % (auto) 39.3 %; Mean Corpuscular Hemoglobin 31.7 pg (25-34); Mean Platelet Volume 11.5 fL (7.4-10.4); Monocytes # (auto) 1.03 K/uL (0.11-0.59); Monocytes % (auto) 11.5 %; Neutrophils # (auto) 4.37 K/uL (1.4-6.5); Neutrophils % (auto) 48.9 %; Platelet Count 213 K/uL (130-400); RDW Coefficient of Variation 13.4 % (11.5-14.5); RDW Standard Deviation 43.8 fL (36.4-46.3); Red Blood Count 4.92 M/uL (4.7-6.1); White Blood Count 8.95 K/uL (4.8-10.8)
[2021-12-05 07:39] LABS: Base Excess VBG 3.5 mEq/L; Oxygen Saturation VBG 96.9 %; pH VBG 7.52 (7.36-7.41)
[2021-12-05 08:01] LABS: Albumin Globulin Ratio 1.3 (0.9-2); Albumin Level 2.9 gm/dl (3.4-5.0); BUN Creatinine Ratio 16.5 (10-20); Bilirubin,Total 2.6 mg/dl (0.2-1.0); Calcium 7.3 mg/dl (8.5-10.1); Creatinine Clr Calc Pharmacy 149.3 ml/min; Est GFR (African American) 131.5 ml/min; Est GFR (Non-African American) 113.5 ml/min; Globulin 2.3 gm/dl (2.5-4.0); Magnesium 1.9 mg/dl (1.7-2.4); Phosphorus 3.6 mg/dl (2.5-4.9); Potassium 3.5 mmol/L (3.5-5.1); Total Protein 5.2 gm/dl (6.0-8.3)
[2021-12-05] MEDS: PANTOprazole 40 MG TAB PO SCH ×2 (08:07→19:41)
[2021-12-05 08:37] LABS: Folate (Folic Acid) 16.63 ng/ml (>5.38)
[2021-12-05 08:38] LABS: Vitamin B12 > 1500 pg/ml (180-914)
[2021-12-05] MEDS ORDERED: ESCITALOPRAM OXALATE 10 MG TAB PO SCH (09:00)
--- NOTE | 2021-12-05 09:02 | Ultrasound Report ---
US liver LIMITED ABDOMEN CLINICAL HISTORY: transaminitis, etoh abuse. COMPARISON: None. TECHNIQUE: Multiple grayscale and color images of the right upper quadrant of the abdomen. FINDINGS: The study is limited as the patient was having tremors during the examination. The patient' s body habitus also limits the study along with overlying bowel gas. Pancreas: The imaged portion of the pancreas is within normal limits with no focal mass or peripancre atic fluid collection identified. Liver: The liver demonstrates increased heterogeneous echogenicity characteristic of fatty infiltrati on. The liver is at the upper limits of normal in size measuring 18 cm. There is no evidence for a fo afshan mass. There is no intrahepatic biliary duct dilatation. Gallbladder: The gallbladder is well distended with evidence for sludge present within the lumen of t he gallbladder. No evidence for wall thickening, pericholecystic edema or calculi seen. There was rep ortedly a negative sonographic Swann sign. Common Bile Duct: (CBD): It is normal in size measuring 3 mm. Inferior Vena Cava (IVC): The imaged IVC is patent. Right kidney: There is no evidence for hydronephrosis, calculus or gross renal mass. The kidney is no rmal in size. IMPRESSION: 1. Limited examination as described. 2. Evidence for fatty infiltration of the liver. 3. Evidence for sludge within the gallbladder. ACT 112: Negative or not required by law. Electronically signed by: Esteban Borden M.D. 12/05/2021 9:01 AM
[2021-12-05] MEDS: FOLIC ACID 1 MG in SYRINGE 9.8 ML IV SCH (09:21)
--- NOTE | 2021-12-05 12:00 | Psychiatric Consultation ---
Date of Consultation December 05, 2021 Impression / Recommendations Impression 31 yo male with significant complications of chronic EToh use, failed own attempt to decrease intake, admit medically with significant LFT elevations and hyponatremia. I doubt that that degree of hyponatremia would be related to his short term use of an ssri. He told liaison last took 10 days ago, told me probably a month ago. 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 (1) Alcohol withdrawal: Complication of substance-induced condition: with unspecified complication Qualified Code(s): F10.239 - Alcohol dependence with withdrawal, unspecified (2) Hyponatremia: (3) Anxiety: I discontinued his antidepressants (were being held) as not taking, currently has gastritis and can contribute to hyponatremia I do not view this patient as suicidal and he is therefore psychiatrically stable for inpatient rehab is recommended when medically cleared. Psych History Identifying Data This is a 31-year-old male with a history of alcohol abuse who presents to [facility] for evaluation of alcohol withdrawal in the context of 10 days of weening from ~17-20 drinks/day to 10-15 drinks/day. Chief Complaint positive suicide risk assessment History of Present Illness per liaison: Met with patient regarding liaison consult/trigger for suicide risk assessment. Patient currently in active withdrawal, tremors noted and c/o not physically feeling well. Patient cooperative with questions regarding mental health history. He reports past history of depression with SA as a teem by polypharmacy OD. He states that he doesn't have depression, suffers more from anxiety. He reports that he is currently unemployed, breakup with girlfriend in October and has increased his alcohol intake over the last month. He states "I have been drinking and having thoughts of not wanting to wake up." He reports that he stopped taking his Lexapro and Trazodone approximately 10 days ago, prescribed by online prescriber through [facility]. He reports decreased sleep of 2 hours per night. Denies any access to guns. He states when not in drinking and in withdrawal he does enjoy lifting weights and feels motivated. He states he is interested in inpatient rehab and assistance with mental health treatment. Discussed with RN regarding assessment and was encouraged to reach out to our service if patient is requesting to leave hospital. The patient states he is feeling much better now and resting comfortably. He states that when experiencing withdrawal he sometimes has passive wish but denies SI currently and certainly no intent or plan to harm himself. He reports a history of some visual montano during a previous episode of withdrawal, "I usually just try to do this on my own." He reiterates his interest in rehab. When asked specifically about polydipsia he says that he drinks "at least" 1/2 gallon of water a day and that "I crave salt like crazy." Reviewed that psych meds can contribute to hyponatremia as well but he states "I only took that for a few weeks." Allergies Allergy/AdvReac Type Severity Reaction Status Date / Time No Known Allergies Allergy Verified 12/04/21 23:18 Home Medications Medication Instructions Recorded Confirmed Type escitalopram oxalate 10 mg tablet 0 mg PO DAILY 12/04/21 12/04/21 History (Lexapro) trazodone 100 mg tablet 0 mg PO HS 12/04/21 12/04/21 History Family History he was unable to elaborate at this time Personal History Beliefs That Will Affect Care: None Patient History Medical History Alcohol abuse Anxiety Social History Smoking Status: Current every day smoker Hx Alcohol Use: Yes Alcohol type: beer and hard liquor Hx Substance Use: Yes Last Used Substance: Just Prior to Arrival Substance Use Type Other:: cbd Preferred Language: Indonesian Communication Ability: Effective Clerical And Administrative Workers Required: No Beliefs That Will Affect Care: None marital status: Single Current Living Situation: Alone Current Living Situation Comment: hotel Feels Safe at Home: Yes Assistive Devices: None Physical Exam Psychiatric: Orientation: alert and oriented x 3 Eye Contact: + not good eye contact (as falls back to sleep and covers eyes with sleep mask) Speech: + abnormal rate/rhythm/volume of speech (slow, mildly slurred) Affect: + depressed affect Mood: + depressed mood Thought Process: + concrete thought process Thought Content: reality based without delusions Suicidal Thoughts: denies suicidal thoughts Homicidal Thoughts: denies homicidal thoughts Hallucinations: no auditory hallucinations and no visual hallucinations Cognition: language grossly intact; + attention not intact Estimated Intelligence: consistent with education level Insight: + limited insight Judgement: + limited judgement Vital Signs (Past 24 Hours): Last Vital Signs Temp 37.3 C 12/05/21 11:53 Pulse 117 H 12/05/21 11:45 Resp 18 12/05/21 11:45 BP 152/81 H 12/05/21 11:00 Pulse Ox 94 12/05/21 11:45 Review of Systems All systems reviewed & are unremarkable except as noted in HPI & below (minimal tremor, N) Results & Data (PSY) Laboratory Results 12/05/21 12/05/21 12/05/21 Range/Units 12:07 10:12 08:19 WBC (4.8-10.8) K/uL RBC (4.7-6.1) M/uL Hgb (14.0-18.0) g/dL Hct (42-52) % MCV (80-100) fL MCH (25-34) pg MCHC (32-36) g/dL RDW Std Deviation (36.4-46.3) fL RDW Coeff of Teresita (11.5-14.5) % Plt Count (130-400) K/uL MPV (7.4-10.4) fL Immature Gran % (Auto) % Neut % (Auto) % Lymph % (Auto) % Marshall % (Auto) % Eos % (Auto) % Baso % (Auto) % Neut # (Auto) (1.4-6.5) K/uL Lymph # (Auto) (1.2-3.4) K/uL Marshall # (Auto) (0.11-0.59) K/uL Eos # (Auto) (0-0.5) K/uL Baso # (Auto) (0-0.2) K/uL Immature Gran # (Auto) (0.00-0.02) K/uL PT (9.0-12.0) Seconds INR (0.9-1.1) VBG pH (7.36-7.41) VBG pCO2 (38-50) mmHg VBG pO2 mmHg VBG HCO3 mmol/L VBG O2 Saturation % VBG Base Excess mEq/L Barometric Pressure mm/Hg Sodium (136-145) mmol/L Potassium (3.5-5.1) mmol/L Chloride (98-107) mmol/L Carbon Dioxide (21-32) mmol/L Anion Gap (3-11) BUN (6-23) mg/dl Creatinine (0.6-1.4) mg/dl Est Cr Clr Drug Dosing ml/min Est GFR ( Amer) ml/min Est GFR (Non-Af Amer) ml/min BUN/Creatinine Ratio (10-20) Glucose (70-99(Fasting)) mg/dl POC Glucose 124 H (70-99) mg/dl Lactate (0.4-2.0) mmol/L Calcium (8.5-10.1) mg/dl Phosphorus Magnesium (1.7-2.4) mg/dl Total Bilirubin (0.2-1.0) mg/dl AST (13-39) U/L ALT (7-52) U/L Alkaline Phosphatase (34-104) U/L Ammonia 35.0 Total Creatine Kinase (30-223) U/L Troponin I High Sens (0-20) pg/ml Total Protein (6.0-8.3) gm/dl Albumin (3.4-5.0) gm/dl Globulin (2.5-4.0) gm/dl Albumin/Globulin Ratio (0.9-2) Lipase (11-82) U/L Vitamin B12 (180-914) pg/ml Folate TSH (0.300-4.500) uIu/ml Urine Color Urine Appearance (Clear) Urine pH (4.5-7.5) Ur Specific [place] (1.000-1.030) Urine Protein (Negative) Urine Glucose (UA) (Negative) Urine Ketones (Negative) Urine Blood (Negative) Urine Nitrite (Negative) Urine Bilirubin (Negative) Urine Urobilinogen (Negative) Ur Leukocyte Esterase (Negative) Urine WBC (Auto) (0-5) /hpf Urine RBC (Auto) (0-4) /hpf U Hyaline Cast (Auto) (0-5) /lpf U Epithel Cells (Auto) (0-5) /lpf Urine Bacteria (Auto) (Negative) Urine Opiates Screen (Neg) Ur Methadone, Qual (Neg) Acetaminophen (10-30) ug/ml Urine Barbiturates (Neg) Ur Phencyclidine (PCP) (Neg) U Amphetamin/Meth Scrn (Neg) MDMA (Ecstasy) Screen (Neg) U Benzodiazepines Scrn (Neg) Ur Cocaine Metabolite (Neg) U Marijuana (THC) Screen (Neg) U Marijuana THC Carboxy Drug Screen Comment Ethyl Alcohol mg/dL (<10.0) mg/dl Hepatitis A IgM Ab Pending Hep Bs Antigen Pending Hep Bs Ag Confirmation Pending Hep B Core IgM Ab Pending Hepatitis C Ab (EIA) Pending Hep C Ab Signal/Cutoff Pending SARS-CoV-2, RNA, NAAT (NEGATIVE) 12/05/21 12/05/21 12/05/21 Range/Units 07:19 07:19 07:19 WBC (4.8-10.8) K/uL RBC (4.7-6.1) M/uL Hgb (14.0-18.0) g/dL Hct (42-52) % MCV (80-100) fL MCH (25-34) pg MCHC (32-36) g/dL RDW Std Deviation (36.4-46.3) fL RDW Coeff of Teresita (11.5-14.5) % Plt Count (130-400) K/uL MPV (7.4-10.4) fL Immature Gran % (Auto) % Neut % (Auto) % Lymph % (Auto) % [place] % (Auto) % Eos % (Auto) % Baso % (Auto) % Neut # (Auto) (1.4-6.5) K/uL Lymph # (Auto) (1.2-3.4) K/uL Marshall # (Auto) (0.11-0.59) K/uL Eos # (Auto) (0-0.5) K/uL Baso # (Auto) (0-0.2) K/uL Immature Gran # (Auto) (0.00-0.02) K/uL PT (9.0-12.0) Seconds INR (0.9-1.1) VBG pH 7.52 H (7.36-7.41) VBG pCO2 33 L (38-50) mmHg VBG pO2 81 mmHg VBG HCO3 26 mmol/L VBG O2 Saturation 96.9 % VBG Base Excess 3.5 mEq/L Barometric Pressure 734.2 mm/Hg Sodium (136-145) mmol/L Potassium (3.5-5.1) mmol/L Chloride (98-107) mmol/L Carbon Dioxide (21-32) mmol/L Anion Gap (3-11) BUN (6-23) mg/dl Creatinine (0.6-1.4) mg/dl Est Cr Clr Drug Dosing ml/min Est GFR ( Amer) ml/min Est GFR (Non-Af Amer) ml/min BUN/Creatinine Ratio (10-20) Glucose (70-99(Fasting)) mg/dl POC Glucose (70-99) mg/dl Lactate 3.0 H* (0.4-2.0) mmol/L Calcium (8.5-10.1) mg/dl Phosphorus Magnesium (1.7-2.4) mg/dl Total Bilirubin (0.2-1.0) mg/dl AST (13-39) U/L ALT (7-52) U/L Alkaline Phosphatase (34-104) U/L Ammonia Cancelled Total Creatine Kinase (30-223) U/L Troponin I High Sens (0-20) pg/ml Total Protein (6.0-8.3) gm/dl Albumin (3.4-5.0) gm/dl Globulin (2.5-4.0) gm/dl Albumin/Globulin Ratio (0.9-2) Lipase (11-82) U/L Vitamin B12 (180-914) pg/ml Folate TSH (0.300-4.500) uIu/ml Urine Color Urine Appearance (Clear) Urine pH (4.5-7.5) Ur Specific [place] (1.000-1.030) Urine Protein (Negative) Urine Glucose (UA) (Negative) Urine Ketones (Negative) Urine Blood (Negative) Urine Nitrite (Negative) Urine Bilirubin (Negative) Urine Urobilinogen (Negative) Ur Leukocyte Esterase (Negative) Urine WBC (Auto) (0-5) /hpf Urine RBC (Auto) (0-4) /hpf U Hyaline Cast (Auto) (0-5) /lpf U Epithel Cells (Auto) (0-5) /lpf Urine Bacteria (Auto) (Negative) Urine Opiates Screen (Neg) Ur Methadone, Qual (Neg) Acetaminophen (10-30) ug/ml Urine Barbiturates (Neg) Ur Phencyclidine (PCP) (Neg) U Amphetamin/Meth Scrn (Neg) MDMA (Ecstasy) Screen (Neg) U Benzodiazepines Scrn (Neg) Ur Cocaine Metabolite (Neg) U Marijuana (THC) Screen (Neg) U Marijuana THC Carboxy Drug Screen Comment Ethyl Alcohol mg/dL (<10.0) mg/dl Hepatitis A IgM Ab Hep Bs Antigen Hep Bs Ag Confirmation Hep B Core IgM Ab Hepatitis C Ab (EIA) Hep C Ab Signal/Cutoff SARS-CoV-2, RNA, NAAT (NEGATIVE) 12/05/21 12/05/21 12/05/21 Range/Units 07:19 07:19 07:18 WBC 8.95 (4.8-10.8) K/uL RBC 4.92 (4.7-6.1) M/uL Hgb 15.6 D (14.0-18.0) g/dL Hct 43.3 (42-52) % MCV 88.0 (80-100) fL MCH 31.7 (25-34) pg MCHC 36.0 (32-36) g/dL RDW Std Deviation 43.8 (36.4-46.3) fL RDW Coeff of Teresita 13.4 (11.5-14.5) % Plt Count 213 (130-400) K/uL MPV 11.5 H (7.4-10.4) fL Immature Gran % (Auto) 0.1 % Neut % (Auto) 48.9 % Lymph % (Auto) 39.3 % Marshall % (Auto) 11.5 % Eos % (Auto) 0.0 % Baso % (Auto) 0.2 % Neut # (Auto) 4.37 (1.4-6.5) K/uL Lymph # (Auto) 3.52 H (1.2-3.4) K/uL Marshall # (Auto) 1.03 H (0.11-0.59) K/uL Eos # (Auto) 0.00 (0-0.5) K/uL Baso # (Auto) 0.02 (0-0.2) K/uL Immature Gran # (Auto) 0.01 (0.00-0.02) K/uL PT (9.0-12.0) Seconds INR (0.9-1.1) VBG pH (7.36-7.41) VBG pCO2 (38-50) mmHg VBG pO2 mmHg VBG HCO3 mmol/L VBG O2 Saturation % VBG Base Excess mEq/L Barometric Pressure mm/Hg Sodium 128 L (136-145) mmol/L Potassium 3.5 (3.5-5.1) mmol/L Chloride 92 L (98-107) mmol/L Carbon Dioxide 26 (21-32) mmol/L Anion Gap 10 (3-11) BUN 15 (6-23) mg/dl Creatinine 0.91 (0.6-1.4) mg/dl Est Cr Clr Drug Dosing 149.3 ml/min Est GFR ( Amer) 131.5 ml/min Est GFR (Non-Af Amer) 113.5 ml/min BUN/Creatinine Ratio 16.5 (10-20) Glucose 165 H (70-99(Fasting)) mg/dl POC Glucose (70-99) mg/dl Lactate (0.4-2.0) mmol/L Calcium 7.3 L (8.5-10.1) mg/dl Phosphorus 3.6 Cancelled Magnesium 1.9 Cancelled (1.7-2.4) mg/dl Total Bilirubin 2.6 H (0.2-1.0) mg/dl AST 119 H (13-39) U/L ALT 151 H (7-52) U/L Alkaline Phosphatase 83 (34-104) U/L Ammonia Total Creatine Kinase 221 (30-223) U/L Troponin I High Sens (0-20) pg/ml Total Protein 5.2 L D (6.0-8.3) gm/dl Albumin 2.9 L (3.4-5.0) gm/dl Globulin 2.3 L (2.5-4.0) gm/dl Albumin/Globulin Ratio 1.3 (0.9-2) Lipase (11-82) U/L Vitamin B12 (180-914) pg/ml Folate TSH (0.300-4.500) uIu/ml Urine Color Urine Appearance (Clear) Urine pH (4.5-7.5) Ur Specific [place] (1.000-1.030) Urine Protein (Negative) Urine Glucose (UA) (Negative) Urine Ketones (Negative) Urine Blood (Negative) Urine Nitrite (Negative) Urine Bilirubin (Negative) Urine Urobilinogen (Negative) Ur Leukocyte Esterase (Negative) Urine WBC (Auto) (0-5) /hpf Urine RBC (Auto) (0-4) /hpf U Hyaline Cast (Auto) (0-5) /lpf U Epithel Cells (Auto) (0-5) /lpf Urine Bacteria (Auto) (Negative) Urine Opiates Screen (Neg) Ur Methadone, Qual (Neg) Acetaminophen (10-30) ug/ml Urine Barbiturates (Neg) Ur Phencyclidine (PCP) (Neg) U Amphetamin/Meth Scrn (Neg) MDMA (Ecstasy) Screen (Neg) U Benzodiazepines Scrn (Neg) Ur Cocaine Metabolite (Neg) U Marijuana (THC) Screen (Neg) U Marijuana THC Carboxy Drug Screen Comment Ethyl Alcohol mg/dL (<10.0) mg/dl Hepatitis A IgM Ab Hep Bs Antigen Hep Bs Ag Confirmation Hep B Core IgM Ab Hepatitis C Ab (EIA) Hep C Ab Signal/Cutoff SARS-CoV-2, RNA, NAAT (NEGATIVE) 12/05/21 12/05/21 12/05/21 Range/Units 07:18 07:18 07:18 WBC (4.8-10.8) K/uL RBC (4.7-6.1) M/uL Hgb (14.0-18.0) g/dL Hct (42-52) % MCV (80-100) fL MCH (25-34) pg MCHC (32-36) g/dL RDW Std Deviation (36.4-46.3) fL RDW Coeff of Teresita (11.5-14.5) % Plt Count (130-400) K/uL MPV (7.4-10.4) fL Immature Gran % (Auto) % Neut % (Auto) % Lymph % (Auto) % Marshall % (Auto) % Eos % (Auto) % Baso % (Auto) % Neut # (Auto) (1.4-6.5) K/uL Lymph # (Auto) (1.2-3.4) K/uL Marshall # (Auto) (0.11-0.59) K/uL Eos # (Auto) (0-0.5) K/uL Baso # (Auto) (0-0.2) K/uL Immature Gran # (Auto) (0.00-0.02) K/uL PT (9.0-12.0) Seconds INR (0.9-1.1) VBG pH (7.36-7.41) VBG pCO2 (38-50) mmHg VBG pO2 mmHg VBG HCO3 mmol/L VBG O2 Saturation % VBG Base Excess mEq/L Barometric Pressure mm/Hg Sodium (136-145) mmol/L Potassium (3.5-5.1) mmol/L Chloride (98-107) mmol/L Carbon Dioxide (21-32) mmol/L Anion Gap (3-11) BUN (6-23) mg/dl Creatinine (0.6-1.4) mg/dl Est Cr Clr Drug Dosing ml/min Est GFR ( Amer) ml/min Est GFR (Non-Af Amer) ml/min BUN/Creatinine Ratio (10-20) Glucose (70-99(Fasting)) mg/dl POC Glucose (70-99) mg/dl Lactate (0.4-2.0) mmol/L Calcium (8.5-10.1) mg/dl Phosphorus Magnesium (1.7-2.4) mg/dl Total Bilirubin (0.2-1.0) mg/dl AST (13-39) U/L ALT (7-52) U/L Alkaline Phosphatase (34-104) U/L Ammonia Total Creatine Kinase (30-223) U/L Troponin I High Sens (0-20) pg/ml Total Protein (6.0-8.3) gm/dl Albumin (3.4-5.0) gm/dl Globulin (2.5-4.0) gm/dl Albumin/Globulin Ratio (0.9-2) Lipase (11-82) U/L Vitamin B12 > 1500 H (180-914) pg/ml Folate 16.63 Cancelled TSH (0.300-4.500) uIu/ml Urine Color Urine Appearance (Clear) Urine pH (4.5-7.5) Ur Specific [place] (1.000-1.030) Urine Protein (Negative) Urine Glucose (UA) (Negative) Urine Ketones (Negative) Urine Blood (Negative) Urine Nitrite (Negative) Urine Bilirubin (Negative) Urine Urobilinogen (Negative) Ur Leukocyte Esterase (Negative) Urine WBC (Auto) (0-5) /hpf Urine RBC (Auto) (0-4) /hpf U Hyaline Cast (Auto) (0-5) /lpf U Epithel Cells (Auto) (0-5) /lpf Urine Bacteria (Auto) (Negative) Urine Opiates Screen (Neg) Ur Methadone, Qual (Neg) Acetaminophen < 3 L (10-30) ug/ml Urine Barbiturates (Neg) Ur Phencyclidine (PCP) (Neg) U Amphetamin/Meth Scrn (Neg) MDMA (Ecstasy) Screen (Neg) U Benzodiazepines Scrn (Neg) Ur Cocaine Metabolite (Neg) U Marijuana (THC) Screen (Neg) U Marijuana THC Carboxy Drug Screen Comment Ethyl Alcohol mg/dL (<10.0) mg/dl Hepatitis A IgM Ab Hep Bs Antigen Hep Bs Ag Confirmation Hep B Core IgM Ab Hepatitis C Ab (EIA) Hep C Ab Signal/Cutoff SARS-CoV-2, RNA, NAAT (NEGATIVE) 12/05/21 12/05/21 12/05/21 Range/Units 04:43 00:15 00:15 WBC (4.8-10.8) K/uL RBC (4.7-6.1) M/uL Hgb (14.0-18.0) g/dL Hct (42-52) % MCV (80-100) fL MCH (25-34) pg MCHC (32-36) g/dL RDW Std Deviation (36.4-46.3) fL RDW Coeff of Teresita (11.5-14.5) % Plt Count (130-400) K/uL MPV (7.4-10.4) fL Immature Gran % (Auto) % Neut % (Auto) % Lymph % (Auto) % Marshall % (Auto) % Eos % (Auto) % Baso % (Auto) % Neut # (Auto) (1.4-6.5) K/uL Lymph # (Auto) (1.2-3.4) K/uL Marshall # (Auto) (0.11-0.59) K/uL Eos # (Auto) (0-0.5) K/uL Baso # (Auto) (0-0.2) K/uL Immature Gran # (Auto) (0.00-0.02) K/uL PT (9.0-12.0) Seconds INR (0.9-1.1) VBG pH (7.36-7.41) VBG pCO2 (38-50) mmHg VBG pO2 mmHg VBG HCO3 mmol/L VBG O2 Saturation % VBG Base Excess mEq/L Barometric Pressure mm/Hg Sodium (136-145) mmol/L Potassium (3.5-5.1) mmol/L Chloride (98-107) mmol/L Carbon Dioxide (21-32) mmol/L Anion Gap (3-11) BUN (6-23) mg/dl Creatinine (0.6-1.4) mg/dl Est Cr Clr Drug Dosing ml/min Est GFR ( Amer) ml/min Est GFR (Non-Af Amer) ml/min BUN/Creatinine Ratio (10-20) Glucose (70-99(Fasting)) mg/dl POC Glucose (70-99) mg/dl Lactate (0.4-2.0) mmol/L Calcium (8.5-10.1) mg/dl Phosphorus Magnesium (1.7-2.4) mg/dl Total Bilirubin (0.2-1.0) mg/dl AST (13-39) U/L ALT (7-52) U/L Alkaline Phosphatase (34-104) U/L Ammonia Total Creatine Kinase (30-223) U/L Troponin I High Sens (0-20) pg/ml Total Protein (6.0-8.3) gm/dl Albumin (3.4-5.0) gm/dl Globulin (2.5-4.0) gm/dl Albumin/Globulin Ratio (0.9-2) Lipase (11-82) U/L Vitamin B12 (180-914) pg/ml Folate TSH (0.300-4.500) uIu/ml Urine Color [place] Urine Appearance Cloudy A (Clear) Urine pH 8.5 H (4.5-7.5) Ur Specific [place] 1.018 (1.000-1.030) Urine Protein Negative (Negative) Urine Glucose (UA) Negative (Negative) Urine Ketones Negative (Negative) Urine Blood Negative (Negative) Urine Nitrite Negative (Negative) Urine Bilirubin Negative (Negative) Urine Urobilinogen Negative (Negative) Ur Leukocyte Esterase Trace H (Negative) Urine WBC (Auto) 0 (0-5) /hpf Urine RBC (Auto) 0-4 (0-4) /hpf U Hyaline Cast (Auto) 1-5 (0-5) /lpf U Epithel Cells (Auto) 0-5 (0-5) /lpf Urine Bacteria (Auto) Negative (Negative) Urine Opiates Screen (Neg) Ur Methadone, Qual (Neg) Acetaminophen (10-30) ug/ml Urine Barbiturates (Neg) Ur Phencyclidine (PCP) (Neg) U Amphetamin/Meth Scrn (Neg) MDMA (Ecstasy) Screen (Neg) U Benzodiazepines Scrn (Neg) Ur Cocaine Metabolite (Neg) U Marijuana (THC) Screen (Neg) U Marijuana THC Carboxy Pending Drug Screen Comment Pending Ethyl Alcohol mg/dL (<10.0) mg/dl Hepatitis A IgM Ab Hep Bs Antigen Hep Bs Ag Confirmation Hep B Core IgM Ab Hepatitis C Ab (EIA) Hep C Ab Signal/Cutoff SARS-CoV-2, RNA, NAAT NEGATIVE (NEGATIVE) 12/05/21 12/04/21 12/04/21 Range/Units 00:15 23:20 23:20 WBC (4.8-10.8) K/uL RBC (4.7-6.1) M/uL Hgb (14.0-18.0) g/dL Hct (42-52) % MCV (80-100) fL MCH (25-34) pg MCHC (32-36) g/dL RDW Std Deviation (36.4-46.3) fL RDW Coeff of Teresita (11.5-14.5) % Plt Count (130-400) K/uL MPV (7.4-10.4) fL Immature Gran % (Auto) % Neut % (Auto) % Lymph % (Auto) % Marshall % (Auto) % Eos % (Auto) % Baso % (Auto) % Neut # (Auto) (1.4-6.5) K/uL Lymph # (Auto) (1.2-3.4) K/uL Marshall # (Auto) (0.11-0.59) K/uL Eos # (Auto) (0-0.5) K/uL Baso # (Auto) (0-0.2) K/uL Immature Gran # (Auto) (0.00-0.02) K/uL PT (9.0-12.0) Seconds INR (0.9-1.1) VBG pH (7.36-7.41) VBG pCO2 (38-50) mmHg VBG pO2 mmHg VBG HCO3 mmol/L VBG O2 Saturation % VBG Base Excess mEq/L Barometric Pressure mm/Hg Sodium (136-145) mmol/L Potassium (3.5-5.1) mmol/L Chloride (98-107) mmol/L Carbon Dioxide (21-32) mmol/L Anion Gap (3-11) BUN (6-23) mg/dl Creatinine (0.6-1.4) mg/dl Est Cr Clr Drug Dosing ml/min Est GFR ( Amer) ml/min Est GFR (Non-Af Amer) ml/min BUN/Creatinine Ratio (10-20) Glucose (70-99(Fasting)) mg/dl POC Glucose (70-99) mg/dl Lactate (0.4-2.0) mmol/L Calcium (8.5-10.1) mg/dl Phosphorus Magnesium (1.7-2.4) mg/dl Total Bilirubin (0.2-1.0) mg/dl AST (13-39) U/L ALT (7-52) U/L Alkaline Phosphatase (34-104) U/L Ammonia Total Creatine Kinase (30-223) U/L Troponin I High Sens (0-20) pg/ml Total Protein (6.0-8.3) gm/dl Albumin (3.4-5.0) gm/dl Globulin (2.5-4.0) gm/dl Albumin/Globulin Ratio (0.9-2) Lipase (11-82) U/L Vitamin B12 (180-914) pg/ml Folate TSH 1.257 (0.300-4.500) uIu/ml Urine Color Urine Appearance (Clear) Urine pH (4.5-7.5) Ur Specific [place] (1.000-1.030) Urine Protein (Negative) Urine Glucose (UA) (Negative) Urine Ketones (Negative) Urine Blood (Negative) Urine Nitrite (Negative) Urine Bilirubin (Negative) Urine Urobilinogen (Negative) Ur Leukocyte Esterase (Negative) Urine WBC (Auto) (0-5) /hpf Urine RBC (Auto) (0-4) /hpf U Hyaline Cast (Auto) (0-5) /lpf U Epithel Cells (Auto) (0-5) /lpf Urine Bacteria (Auto) (Negative) Urine Opiates Screen Neg (Neg) Ur Methadone, Qual Neg (Neg) Acetaminophen (10-30) ug/ml Urine Barbiturates Neg (Neg) Ur Phencyclidine (PCP) Neg (Neg) U Amphetamin/Meth Scrn Neg (Neg) MDMA (Ecstasy) Screen Neg (Neg) U Benzodiazepines Scrn Neg (Neg) Ur Cocaine Metabolite Neg (Neg) U Marijuana (THC) Screen Pos H (Neg) U Marijuana THC Carboxy Drug Screen Comment Ethyl Alcohol mg/dL 222.4 H (<10.0) mg/dl Hepatitis A IgM Ab Hep Bs Antigen Hep Bs Ag Confirmation Hep B Core IgM Ab Hepatitis C Ab (EIA) Hep C Ab Signal/Cutoff SARS-CoV-2, RNA, NAAT (NEGATIVE) 12/04/21 12/04/21 12/04/21 Range/Units 23:20 23:20 23:20 WBC 6.40 (4.8-10.8) K/uL RBC 5.84 (4.7-6.1) M/uL Hgb 18.8 H (14.0-18.0) g/dL Hct 51.1 (42-52) % MCV 87.5 (80-100) fL MCH 32.2 (25-34) pg MCHC 36.8 H (32-36) g/dL RDW Std Deviation 42.7 (36.4-46.3) fL RDW Coeff of Teresita 13.3 (11.5-14.5) % Plt Count 261 (130-400) K/uL MPV 11.6 H (7.4-10.4) fL Immature Gran % (Auto) 0.0 % Neut % (Auto) 42.9 % Lymph % (Auto) 43.3 % Marshall % (Auto) 13.6 % Eos % (Auto) 0.0 % Baso % (Auto) 0.2 % Neut # (Auto) 2.75 (1.4-6.5) K/uL Lymph # (Auto) 2.77 (1.2-3.4) K/uL Marshall # (Auto) 0.87 H (0.11-0.59) K/uL Eos # (Auto) 0.00 (0-0.5) K/uL Baso # (Auto) 0.01 (0-0.2) K/uL Immature Gran # (Auto) 0.00 (0.00-0.02) K/uL PT 15.3 H (9.0-12.0) Seconds INR 1.5 H (0.9-1.1) VBG pH (7.36-7.41) VBG pCO2 (38-50) mmHg VBG pO2 mmHg VBG HCO3 mmol/L VBG O2 Saturation % VBG Base Excess mEq/L Barometric Pressure mm/Hg Sodium 127 L (136-145) mmol/L Potassium 3.6 (3.5-5.1) mmol/L Chloride 82 L (98-107) mmol/L Carbon Dioxide 29 (21-32) mmol/L Anion Gap 16 H (3-11) BUN 16 (6-23) mg/dl Creatinine 1.09 (0.6-1.4) mg/dl Est Cr Clr Drug Dosing 132.6 ml/min Est GFR ( Amer) 105.7 ml/min Est GFR (Non-Af Amer) 91.2 ml/min BUN/Creatinine Ratio 14.7 (10-20) Glucose 203 H (70-99(Fasting)) mg/dl POC Glucose (70-99) mg/dl Lactate (0.4-2.0) mmol/L Calcium 9.1 (8.5-10.1) mg/dl Phosphorus Magnesium 2.3 (1.7-2.4) mg/dl Total Bilirubin 2.9 H (0.2-1.0) mg/dl AST 173 H (13-39) U/L ALT 215 H (7-52) U/L Alkaline Phosphatase 109 H (34-104) U/L Ammonia Total Creatine Kinase (30-223) U/L Troponin I High Sens 12.2 (0-20) pg/ml Total Protein 6.7 (6.0-8.3) gm/dl Albumin 3.7 (3.4-5.0) gm/dl Globulin 3.0 (2.5-4.0) gm/dl Albumin/Globulin Ratio 1.2 (0.9-2) Lipase 40 (11-82) U/L Vitamin B12 (180-914) pg/ml Folate TSH (0.300-4.500) uIu/ml Urine Color Urine Appearance (Clear) Urine pH (4.5-7.5) Ur Specific [place] (1.000-1.030) Urine Protein (Negative) Urine Glucose (UA) (Negative) Urine Ketones (Negative) Urine Blood (Negative) Urine Nitrite (Negative) Urine Bilirubin (Negative) Urine Urobilinogen (Negative) Ur Leukocyte Esterase (Negative) Urine WBC (Auto) (0-5) /hpf Urine RBC (Auto) (0-4) /hpf U Hyaline Cast (Auto) (0-5) /lpf U Epithel Cells (Auto) (0-5) /lpf Urine Bacteria (Auto) (Negative) Urine Opiates Screen (Neg) Ur Methadone, Qual (Neg) Acetaminophen (10-30) ug/ml Urine Barbiturates (Neg) Ur Phencyclidine (PCP) (Neg) U Amphetamin/Meth Scrn (Neg) MDMA (Ecstasy) Screen (Neg) U Benzodiazepines Scrn (Neg) Ur Cocaine Metabolite (Neg) U Marijuana (THC) Screen (Neg) U Marijuana THC Carboxy Drug Screen Comment Ethyl Alcohol mg/dL (<10.0) mg/dl Hepatitis A IgM Ab Hep Bs Antigen Hep Bs Ag Confirmation Hep B Core IgM Ab Hepatitis C Ab (EIA) Hep C Ab Signal/Cutoff SARS-CoV-2, RNA, NAAT (NEGATIVE) Medications Administered Chlordiazepoxide HCl (Chlordiazepoxide 25mg Starting Dose) 25 mg PO Q6H JOSE; Protocol Stop: 12/05/21 23:31 Last Admin: 12/05/21 05:32 Dose: 25 mg Documented by: [id number] Lactated Ringer's (Lr) 1,000 mls @ 100 mls/hr IV .Q10H JOSE Stop: 01/04/22 05:49 Last Admin: 12/05/21 06:38 Dose: 100 mls/hr Documented by: [id number] Folic Acid 1 mg/ Syringe 10 mls @ 5 mls/min IV QAM JOSE Stop: 01/04/22 08:59 Last Admin: 12/05/21 09:21 Dose: 5 mls/min Documented by: [id number] Lorazepam (Lorazepam 2 Mg/1 Ml Vial) 2 mg IV UD PRN; Protocol PRN Reason: EtOH Withdrawl AWSS Score 8,9 Stop: 01/04/22 05:49 Last Admin: 12/05/21 08:07 Dose: 2 mg Documented by: [id number] Admin: 12/05/21 07:04 Dose: 2 mg Documented by: [id number] Pantoprazole Sodium (Pantoprazole 40 Mg Tab) 40 mg PO BID JOSE Stop: 01/04/22 08:59 Last Admin: 12/05/21 08:07 Dose: 40 mg Documented by: [id number] Coding Level of Care Code 73196 Inpt Consult Level 3 Diagnoses Alcohol withdrawal F10.239 Complication of substance-induced condition: with unspecified complication Hyponatremia E87.1 Anxiety F41.9
--- NOTE | 2021-12-05 15:26 | Electrocardiogram Report ---
Test Reason : Blood Pressure : / mmHG Vent. Rate : 113 BPM Atrial Rate : 113 BPM P-R Int : 140 ms QRS Dur : 096 ms QT Int : 328 ms P-R-T Axes : 049 091 055 degrees QTc Int : 449 ms Sinus tachycardia Rightward axis Possible Inferior infarct , age undetermined Abnormal ECG No previous ECGs available Confirmed by Almas Carrillo ([id number]) on 12/05/2021 3:26:13 PM Referred By: REFERRED SELF Confirmed By:Almas Carrillo
[2021-12-05] MEDS ORDERED: traZODone HCL 50 MG TAB PO SCH (21:00)
[2021-12-06] MEDS: CHLORDIAZEPOXIDE 25MG STARTING DOSE PO SCH (00:11)
[2021-12-06] MEDS: LORazepam 2 MG/1 ML VIAL IV PRN ×6 (01:06→20:12)
[2021-12-06] MEDS: LACTATED RINGER'S 1,000 ML IV SCH (03:18)
[2021-12-06 05:45] LABS: Basophils # (auto) 0.02 K/uL (0-0.2); Basophils % (auto) 0.3 %; Eosinophils # (auto) 0.06 K/uL (0-0.5); Eosinophils % (auto) 0.9 %; Hematocrit (blood only) 40.6 % (42-52); Hemoglobin 14.4 g/dL (14.0-18.0); Immature Granulocytes # (auto) 0.01 K/uL (0.00-0.02); Immature Granulocytes % (auto) 0.1 %; Lymphocytes # (auto) 3.13 K/uL (1.2-3.4); Lymphocytes % (auto) 46.2 %; Mean Corpuscular Hemoglobin 32.1 pg (25-34); Mean Corpuscular Hgb Conc 35.5 g/dL (32-36); Mean Corpuscular Volume 90.4 fL (80-100); Mean Platelet Volume 11.9 fL (7.4-10.4); Monocytes % (auto) 7.4 %; Neutrophils # (auto) 3.06 K/uL (1.4-6.5); Neutrophils % (auto) 45.1 %; Platelet Count 138 K/uL (130-400); RDW Coefficient of Variation 13.2 % (11.5-14.5); RDW Standard Deviation 43.7 fL (36.4-46.3); Red Blood Count 4.49 M/uL (4.7-6.1); White Blood Count 6.78 K/uL (4.8-10.8)
[2021-12-06 06:04] LABS: INR 1.2 (0.9-1.1); Prothrombin Time 12.3 Seconds (9.0-12.0)
[2021-12-06 06:19] LABS: Albumin Globulin Ratio 1.3 (0.9-2); Albumin Level 2.9 gm/dl (3.4-5.0); BUN Creatinine Ratio 11.5 (10-20); Bilirubin Direct 0.8 mg/dl (0-0.2); Bilirubin,Total 2.2 mg/dl (0.2-1.0); Calcium 7.7 mg/dl (8.5-10.1); Creatinine Clr Calc Pharmacy 141.5 ml/min; Est GFR (African American) 123.3 ml/min; Est GFR (Non-African American) 106.4 ml/min; Globulin 2.3 gm/dl (2.5-4.0); Magnesium 2.1 mg/dl (1.7-2.4); Phosphorus 2.2 mg/dl (2.5-4.9); Total Protein 5.2 gm/dl (6.0-8.3)
[2021-12-06] MEDS ORDERED: POTASSIUM PHOS 3 MMOL/1 ML INFUSION IV STA (06:49)
[2021-12-06] MEDS ORDERED: POTASSIUM PHOSPHATE 40 MMOL in SODIUM CHLORIDE 0.9% 1000ML 1,000 ML IV ONE (07:15)
[2021-12-06] MEDS: CHLORDIAZEPOXIDE 25MG 2ND DOSE PO SCH ×3 (07:41→23:11)
[2021-12-06] MEDS: PANTOprazole 40 MG TAB PO SCH ×2 (09:07→20:13)
[2021-12-06] MEDS: FOLIC ACID 1 MG in SYRINGE 9.8 ML IV SCH (09:07)
--- NOTE | 2021-12-06 09:09 | Critical Care Progress Note ---
Date of Service December 06, 2021 Assessment & Plan (1) Alcoholic intoxication: (2) Alcohol withdrawal: (3) Anxiety: (4) Alcoholic hepatitis: (5) Hyponatremia: (6) Elevated INR: (7) Alcoholic gastritis: (8) Alcohol abuse: Plan: Ulises is a 31 year old male with history of chronic alcohol use admitted for acute alcohol intoxication, monitoring for withdrawal, and alcoholic hepatitis. Neuro Acute alcohol intoxication/withdrawal: -On Librium taper, Ativan per AWSS protocol. -Thiamine 300mg daily, folic acid 1mg IV daily -Monitor for seizure-like activity or hallucinations. -Improving, albeit slowly. Cardiac Tachycardia/HTN: -Most likely mix of alcohol tapering/withdrawal symptoms plus anxiety. -Continue as above for alcohol withdrawal, appreciate psych recs for anxiety. Respiratory -Saturating well on room air, no history of pulmonary disease. GI Alcoholic hepatitis: -AST, ALT, alk phos, T. Bili improved since admission. -PT 12.3, INR 1.2 improved. -2/2 alcohol induced, will most likely resolve w/ alcohol abstinence. Renal/Electrolytes Hyponatremia: -132 this morning, improving. Likely 2/2 excessive alcohol consumption. -On LR 100ml/hr. Hypokalemia: -Potassium 3.0 this AM. -Ordered KCl 40meq PO. -Cont. monitor BMP. -Monitor I&O's. Endo -No history of DM or thyroid disease. ICU hypoglycemia protocol. Heme -Hgb stable at 14.4 this AM. -Hgb 18.8 on admission. May be 2/2 hemoconcentration from dehydration, can work up further outpatient for other etiologies. ID No concern for infection at this time. Lines/IV Access Peripheral line. DVT Prophylaxis SCDs. Dispo: ICU, good to be downgraded today. Patient will need coordination with case management & behavioral health for further needs. Admission and Anticipated Discharge Date Admission Date: December 05, 2021 Supervising Physician Co-Signing Physician Notes Patient seen and examined. EMR reviewed. Discussed with FP resident and on MDR and agree with AP as noted. Patient is been hemodynamically stable. He required 1 dose of rescue Ativan overnight. He continues to be tearful and emotional. Behavioral health is assisting in evaluation and management. He is tolerating a diet. He has been slightly unsteady on his feet and physical therapy and Occupational Therapy consults will be ordered. Continue electrolyte replacement. He appears stable to transfer to the floor at this point time. Critical care services will sign off. Feel free to contact us if we can be of additional assistance Subjective Patient feeling the same this morning, says he wants to go to inpatient rehab for help and hopes to go from this hospital straight to rehab. He ate his food this morning without issue and denies any emesis. Review of Systems Constitutional: as per Subjective / HPI Physical Exam Constitutional: WD/WN, vitals as above + obese Eyes: PERRL, conjunctivae normal, anicteric sclerae Respiratory: normal respiratory effort, lungs clear to auscultation Cardiovascular: Rate/Rhythm: + tachycardic Heart Sounds: normal S1 and normal S2 Gastrointestinal (Abdomen): normal bowel sounds, soft, nontender, no hepatosplenomegaly Psychiatric: Orientation: alert and oriented x 3 Apperance: appeared stated age Eye Contact: + fair eye contact Thought Process: goal directed thought process Patient tearful at times when talking about wanting help at rehab facility. Results & Data Results & Data ([facility]) Vital Signs (Past 12 Hours) Vital Signs Temp Pulse Pulse Resp BP BP Pulse Ox 12/06/21 08:00 37.3 C 106 H 18 155/83 H 96 12/06/21 07:59 12/06/21 07:54 108 H 12/06/21 07:15 100 H 15 98 12/06/21 07:00 105 H 22 155/83 H 85 L 12/06/21 06:45 100 H 16 96 12/06/21 06:30 97 H 26 H 98 12/06/21 06:15 90 23 97 12/06/21 06:00 89 19 133/100 93 12/06/21 05:00 90 20 137/82 12/06/21 04:00 36.8 C 89 19 125/76 98 12/06/21 03:00 98 H 17 140/82 97 12/06/21 02:00 104 H 23 135/87 92 12/06/21 01:00 37.1 C 125 H 23 145/88 H 92 12/06/21 00:00 107 H 29 H 147/82 H 96 12/05/21 23:00 111 H 17 127/68 96 12/05/21 22:21 99 H 21 141/86 H 93 04/25/22 22:00 103 H 21 141/86 H 97 12/05/21 21:30 102 H 21 97 12/05/21 21:00 37.1 C 106 H 21 130/64 98 Pulse Ox 12/06/21 08:00 12/06/21 07:59 96 12/06/21 07:54 12/06/21 07:15 12/06/21 07:00 96 12/06/21 06:45 12/06/21 06:30 12/06/21 06:15 12/06/21 06:00 12/06/21 05:00 12/06/21 04:00 12/06/21 03:00 12/06/21 02:00 12/06/21 01:00 12/06/21 00:00 94 12/05/21 23:00 12/05/21 22:21 12/05/21 22:00 12/05/21 21:30 12/05/21 21:00 Resident Activity Tracking Resident Involvement: Resident Care Provided Care Provided: Adult Hospital Medicine (1) Alcohol withdrawal Complication of substance-induced condition: with unspecified complication Qualified Code(s): F10.239 - Alcohol dependence with withdrawal, unspecified (2) Alcoholic intoxication Complication of substance-induced condition: uncomplicated Qualified Code(s): F10.920 - Alcohol use, unspecified with intoxication, uncomplicated (3) Alcoholic hepatitis Ascites presence: unspecified Qualified Code(s): K70.10 - Alcoholic hepatitis without ascites
[2021-12-06] MEDS ORDERED: POTASSIUM CHLORIDE CRTAB 20 MEQ TABCR PO STA (09:17)
--- NOTE | 2021-12-06 10:08 | Billing Data ---
Date of Service December 06, 2021 Coding Level of Care Code 58645 Subseq Hosp Care Lvl 2
--- NOTE | 2021-12-06 10:41 | Hospitalist Progress Note ---
Date of Service December 06, 2021 Assessment & Plan (1) Alcohol withdrawal: Plan: Previously was drinking 17-20 drinks/day. Had cut back to 10-15 drinks/day in the week leading up to admission. Last etoh was 12/04/21 ~1800. Continue Librium taper. Continue AWSS Ativan IV prn protocol. Continue folate, thiamine, multivitamin. Fortunately no DTs since admission. Not requiring continuous sedation/drip -- thus, downgrading from ICU to PCU status. (2) Alcoholic hepatitis: Plan: LFTs modestly better today. Maddrey's DF <30 thus no methylprednisolone therapy at this time. Liver u/s without radiographic features of cirrhosis. Repeat LFTs am. (3) Hyponatremia: Plan: Serum Na 127 at admission. 130 today s/p isotonic fluids. May have had element of tea/toast phenomenon in the setting of severe alcoholism. Repeat BMP am. (4) Anxiety: Plan: Severe. Long-standing per his father. Psych consult appreciated. 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 (5) Elevated INR: Plan: Likely vitamin K deficient. s/p vitamin K 2.5mg x 1 yesterday with improved INR to 1.2. Will give additional 5mg of vitamin K IV today. repeat INR am. (6) Mood disorder: Plan: At minimum has substance-induced mood d/o from alcoholism. Cannot rule out primary depression. Psych consult appreciated. B12/TSH noted to be normal. (7) Hypokalemia: Plan: Replace. Repeat level AM. Mag noted to be normal today. (8) Hypophosphatemia: Plan: Replace IV per protocol. (9) Alcoholic gastritis: Plan: Presumed. Likely cause of mild abdominal pain. Can't rule out acute alcoholic hepatitis contributing to pain. Monitor. Plan: pt's father extensively updated by phone collateral information obtained from his father - this information will be very helpful to psychiatry total time today 35 min Admission and Anticipated Discharge Date Admission Date: December 05, 2021 Subjective patient c/o tremors and anxiety during the visit he denies any cough/dyspnea denies abd pain, nausea or emesis patient gave some background on his family, etc -- reports he broke up with his girlfriend of 7 years in September 2021 since then has been drinking more heavily states that the alcohol helps his anxiety with the patient's permission I spoke with Richard, his father ([phone]) Richard lives in [place] Richard stated that Ulises has been drinking alcohol since his mid-teens states that Richard suffers from severe anxiety Ulises's mother either has bipolar disorder or schizoaffective disorder; she l kenneth in [place] about age 17 Ulises had an overdose by way of prescription medications (took his mother's psych meds??) was hospitalized in a mental health unit in [place], [place] for about 2 weeks following that hospitalization he was sent to some form of long-term mental health unit for children in [place] then he was sent to a school in [place], [place] that tailored to adolescents with mental health troubles graduated from this high school during his teenage years he apparently had episodes of "cutting" Ulises did obtain an engineering degree in college and worked at [employer] in [facility] for several years, then got a job in [place] working at [employer] after moving to [place] he worked from home and became socially isolated which led to more etoh usage he was let go by [employer] about 7 months after starting that job he ultimately moved from [place] to [place] because his paternal aunt lives here his drinking continued in [place], and he ultimately was asked to move out from his aunt's home he has been staying in a hotel over the last 1-2 weeks Richard states that he doesn't recall any manic spells over Ulises's lifetime 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 no formal psych diagnosis given at any time per Richard Review of Systems Review of Systems: gen - fatigue, appetite poor cv - no chest pain pulm - no cough GI - no nausea Physical Exam Physical Exam: gen - flat affect; no DTs however; follows commands neck - no JVD mouth - MMM heart - RRR, s1 s2, no murmur lungs - CTA b/l abd - soft NT ND BS+; liver edge modestly palpable neuro - mild tremors ext - no edema, pulses 2+ b/l psych - a/o x 3, flat affect Results & Data Results & [facility] ([facility]) Vital Signs (Past 12 Hours) Vital Signs Temp Pulse Pulse Resp BP BP Pulse Ox 12/06/21 08:00 37.3 C 106 H 18 155/83 H 96 12/06/21 07:59 12/06/21 07:54 108 H 12/06/21 07:15 100 H 15 98 12/06/21 07:00 105 H 22 155/83 H 85 L 12/06/21 06:45 100 H 16 96 12/06/21 06:30 97 H 26 H 98 12/06/21 06:15 90 23 97 12/06/21 06:00 89 19 133/100 93 12/06/21 05:00 90 20 137/82 12/06/21 04:00 36.8 C 89 19 125/76 98 12/06/21 03:00 98 H 17 140/82 97 12/06/21 02:00 104 H 23 135/87 92 12/06/21 01:00 37.1 C 125 H 23 145/88 H 92 12/06/21 00:00 107 H 29 H 147/82 H 96 12/05/21 23:00 111 H 17 127/68 96 Pulse Ox 12/06/21 08:00 12/06/21 07:59 96 12/06/21 07:54 12/06/21 07:15 12/06/21 07:00 96 12/06/21 06:45 12/06/21 06:30 12/06/21 06:15 12/06/21 06:00 12/06/21 05:00 12/06/21 04:00 12/06/21 03:00 12/06/21 02:00 12/06/21 01:00 12/06/21 00:00 94 12/05/21 23:00 Laboratory Results Laboratory Results - last 24 hr 12/05/21 12/05/21 12/05/21 05:45 12:07 16:28 WBC RBC Hgb Hct MCV MCH MCHC RDW Std Deviation RDW Coeff of Teresita Plt Count MPV Immature Gran % (Auto) Neut % (Auto) Lymph % (Auto) Kent % (Auto) Eos % (Auto) Baso % (Auto) Neut # (Auto) Lymph # (Auto) Kent # (Auto) Eos # (Auto) Baso # (Auto) Immature Gran # (Auto) PT INR Sodium Potassium Chloride Carbon Dioxide Anion Gap BUN Creatinine Est Cr Clr Drug Dosing Est GFR ( Amer) Est GFR (Non-Af Amer) BUN/Creatinine Ratio Glucose POC Glucose 124 H 120 H Calcium Phosphorus Magnesium Total Bilirubin Direct Bilirubin AST ALT Alkaline Phosphatase Total Protein Albumin Globulin Albumin/Globulin Ratio Nasal Screen MRSA (PCR) Negative 12/05/21 12/06/21 12/06/21 17:55 05:20 05:20 WBC 6.78 RBC 4.49 L Hgb 14.4 Hct 40.6 L MCV 90.4 MCH 32.1 MCHC 35.5 RDW Std Deviation 43.7 RDW Coeff of Teresita 13.2 Plt Count 138 MPV 11.9 H Immature Gran % (Auto) 0.1 Neut % (Auto) 45.1 Lymph % (Auto) 46.2 Kent % (Auto) 7.4 Eos % (Auto) 0.9 Baso % (Auto) 0.3 Neut # (Auto) 3.06 Lymph # (Auto) 3.13 Kent # (Auto) 0.50 Eos # (Auto) 0.06 Baso # (Auto) 0.02 Immature Gran # (Auto) 0.01 PT 12.3 H INR 1.2 H Sodium Potassium Chloride Carbon Dioxide Anion Gap BUN Creatinine Est Cr Clr Drug Dosing Est GFR ( Amer) Est GFR (Non-Af Amer) BUN/Creatinine Ratio Glucose POC Glucose 135 H Calcium Phosphorus Magnesium Total Bilirubin Direct Bilirubin AST ALT Alkaline Phosphatase Total Protein Albumin Globulin Albumin/Globulin Ratio Nasal Screen MRSA (PCR) 12/06/21 05:20 WBC RBC Hgb Hct MCV MCH MCHC RDW Std Deviation RDW Coeff of Teresita Plt Count MPV Immature Gran % (Auto) Neut % (Auto) Lymph % (Auto) Kent % (Auto) Eos % (Auto) Baso % (Auto) Neut # (Auto) Lymph # (Auto) Kent # (Auto) Eos # (Auto) Baso # (Auto) Immature Gran # (Auto) PT INR Sodium 132 L Potassium 3.0 L Chloride 97 L Carbon Dioxide 27 Anion Gap 8 BUN 11 Creatinine 0.96 Est Cr Clr Drug Dosing 141.5 Est GFR ( Amer) 123.3 Est GFR (Non-Af Amer) 106.4 BUN/Creatinine Ratio 11.5 Glucose 135 H POC Glucose Calcium 7.7 L Phosphorus 2.2 L D Magnesium 2.1 Total Bilirubin 2.2 H Direct Bilirubin 0.8 H AST 122 H ALT 120 H Alkaline Phosphatase 88 Total Protein 5.2 L Albumin 2.9 L Globulin 2.3 L Albumin/Globulin Ratio 1.3 Nasal Screen MRSA (PCR) PG Care Time/CCT Total # of Minutes Spent Total Time Spent with Patient: Total time spent is greater than 50% in coordination of care (as documented) at patient's floor/unit and/or counseling patient: Coding Level of Care Code 26307 Subseq Hosp Care Lvl 3 Diagnoses Alcohol withdrawal F10.239 Complication of substance-induced condition: with unspecified complication Alcoholic hepatitis K70.10 Ascites presence: unspecified Hyponatremia E87.1 Anxiety F41.9 Elevated INR R79.1 Mood disorder F39 Hypokalemia E87.6 Hypophosphatemia E83.39 Alcoholic gastritis K29.20 (1) Alcohol withdrawal Complication of substance-induced condition: with unspecified complication Qualified Code(s): F10.239 - Alcohol dependence with withdrawal, unspecified (2) Alcoholic hepatitis Ascites presence: unspecified Qualified Code(s): K70.10 - Alcoholic hepatitis without ascites
[2021-12-06] MEDS ORDERED: PHYTONADIONE 5 MG in DEXTROSE 5% 50 ML IV ONE (11:00)
[2021-12-06] MEDS: THIAMINE HCL 300 MG in SODIUM CHLORIDE 0.9% 50 ML IV SCH (11:55)
[2021-12-06 16:22] LABS: HBSAG NON-REACTIVE (NON-REACTIVE); Hepatitis A Antibody IgM NON-REACTIVE (NON-REACTIVE); Hepatitis B Core Antibody IgM NON-REACTIVE (NON-REACTIVE)
[2021-12-06 22:02] LABS: Marijuana Quant, GCMS Urine 343 ng/mL (<5)
[2021-12-07] MEDS: LORazepam 2 MG/1 ML VIAL IV PRN ×4 (01:22→16:21)
[2021-12-07 05:58] LABS: Prothrombin Time 10.4 Seconds (9.0-12.0)
[2021-12-07 06:17] LABS: Mean Corpuscular Hgb Conc 34.4 g/dL (32-36)
[2021-12-07 06:58] LABS: Albumin Globulin Ratio 1.2 (0.9-2); Albumin Level 3.4 gm/dl (3.4-5.0); Bilirubin,Total 2.2 mg/dl (0.2-1.0); Calcium 8.4 mg/dl (8.5-10.1); Creatinine Clr Calc Pharmacy 153.4 ml/min; Est GFR (African American) 133.9 ml/min; Est GFR (Non-African American) 115.5 ml/min; Globulin 2.8 gm/dl (2.5-4.0); Magnesium 2.1 mg/dl (1.7-2.4); Phosphorus 3.7 mg/dl (2.5-4.9); Potassium 3.4 mmol/L (3.5-5.1); Total Protein 6.2 gm/dl (6.0-8.3)
[2021-12-07 07:22] LABS: Mean Platelet Volume 4.3 fL (7.4-10.4); Platelet Count 104 K/uL (130-400)
[2021-12-07 07:23] LABS: Platelet Estimate Decreased (Normal)
[2021-12-07 07:24] LABS: Hematocrit (blood only) 42.4 % (42-52); Hemoglobin 14.6 g/dL (14.0-18.0); Mean Corpuscular Hemoglobin 31.2 pg (25-34); Mean Corpuscular Volume 90.6 fL (80-100); RDW Coefficient of Variation 13.4 % (11.5-14.5); Red Blood Count 4.68 M/uL (4.7-6.1); White Blood Count 6.02 K/uL (4.8-10.8)
[2021-12-07] MEDS: CHLORDIAZEPOXIDE 10MG 3RD DOSE PO SCH ×3 (07:35→23:20)
[2021-12-07] MEDS: FOLIC ACID 1 MG in SYRINGE 9.8 ML IV SCH (10:08)
[2021-12-07] MEDS: PANTOprazole 40 MG TAB PO SCH ×2 (10:08→20:16)
[2021-12-07] MEDS: THIAMINE HCL 300 MG in SODIUM CHLORIDE 0.9% 50 ML IV SCH (11:12)
[2021-12-07] MEDS: NSS + 20MEQ KCL 20 MEQ/1,000 ML BAG IV SCH (11:12)
--- NOTE | 2021-12-07 14:55 | Communication Note ---
Date of Service: December 07, 2021 rounded on patient, he was sleeping soundly despite IV alarm, etc. Remains emotional re: rehab and wanting to ensure he will have a placement when medicall y cleared, etc. Benefits from nursing support and redirectible. No psychosis. No sinai. No active SI.
--- NOTE | 2021-12-07 20:33 | Hospitalist Progress Note ---
Date of Service December 07, 2021 Assessment & Plan (1) Alcohol withdrawal: Plan: Previously was drinking 17-20 drinks/day. Had cut back to 10-15 drinks/day in the week leading up to admission. Last etoh was 12/04/21 ~1800. Continue Librium taper. Continue AWSS Ativan IV prn protocol. Continue folate, thiamine, multivitamin. Fortunately still no DTs since admission. Requiring IV ativan frequently but some of the use is for his severe anxiety disorder. Monitor for need for IV sedative infusion but thus far no need for such. (2) Alcoholic hepatitis: Plan: LFTs cont to slowly improve. Maddrey's DF <30 thus no methylprednisolone therapy at this time. Liver u/s without radiographic features of cirrhosis. Repeat LFTs every 2-3 days for ongoing improvement. (3) Hyponatremia: Plan: Serum Na 127 at admission. 133 today s/p isotonic fluids. May have had element of tea/toast phenomenon in the setting of severe alcoholism. Repeat BMP am. Can likely stop IV fluids next 24 hours. (4) Anxiety: Plan: Severe. Long-standing per his father. Psych consult appreciated. 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 (5) Elevated INR: Plan: Likely vitamin K deficient. s/p vitamin K 2.5mg x 1 and 5mg x 1 with normalization of INR. (6) Mood disorder: Plan: At minimum has substance-induced mood d/o from alcoholism. Cannot rule out primary depression. Psych consult appreciated. B12/TSH noted to be normal. (7) Hypokalemia: Plan: Replacing and slowly improving. Repeat level AM. Mag normal.d (8) Hypophosphatemia: Plan: Replaced and improved. (9) Alcoholic gastritis: Plan: Presumed. Likely cause of mild abdominal pain. Can't rule out acute alcoholic hepatitis contributing to pain. Cont PPI bid. (10) Ataxia: Plan: likely due to alcohol withdrawal syndrome -- but ataxia is focal on right side cerebellar insult from chronic etoh use? if focal signs persist will need head imaging Plan: pt's father extensively updated by phone collateral information obtained from his father - see my prior note will ask PT/OT to see next 1-2 days Admission and Anticipated Discharge Date Admission Date: December 05, 2021 Subjective overnight requiring frequent IV ativan for anxiety, tremors, other etoh withdrawal symptoms he endorses ongoing anxiety issues - states it has been severe for many years appetite is fair at best no vomiting no dyspnea telemetry wnl overnight Review of Systems Review of Systems: gen - no fever cv - no cp, no orthopnea pulm - no dyspnea or cough GI - minimal abdominal pain Physical Exam Physical Exam: gen - flat affect; still no signs of DTs neck - no JVD eyes - horizontal nystagmus present mouth - MMM heart - RRR but borderline tachy, s1 s2, no murmur lungs - CTA b/l abd - soft NT ND BS+ neuro - mild tremors; ataxia with finger/nose/finger maneuver on right; heel- lockwood b/l wnl; finger/nose/finger on left intact ext - no edema, pulses 2+ b/l psych - a/o x 3, flat affect Results & Data Results & Data ([facility]) Vital Signs (Past 12 Hours) Vital Signs Temp Pulse Resp BP Pulse Ox Pulse Ox 12/07/21 18:30 80 18 12/07/21 18:15 80 18 12/07/21 18:00 36.9 C 84 18 111/77 12/07/21 17:45 87 18 12/07/21 17:30 90 19 12/07/21 17:15 99 H 20 12/07/21 17:14 97 H 21 12/07/21 16:45 100 H 19 12/07/21 16:30 110 H 18 12/07/21 16:00 93 H 15 105/68 94 95 12/07/21 15:45 90 20 12/07/21 15:30 73 18 12/07/21 15:15 80 17 12/07/21 15:00 74 17 12/07/21 14:45 86 18 12/07/21 14:30 74 19 12/07/21 14:15 87 20 12/07/21 14:00 37.0 C 101 H 19 12/07/21 13:45 84 18 12/07/21 13:30 87 19 12/07/21 13:15 93 H 23 12/07/21 13:00 92 H 22 12/07/21 12:50 106 H 22 135/85 12/07/21 12:49 105 H 32 H 12/07/21 12:15 103 H 24 12/07/21 12:00 112 H 17 95 12/07/21 11:45 115 H 15 12/07/21 11:30 86 18 12/07/21 11:15 87 17 12/07/21 11:00 83 20 12/07/21 10:45 92 H 21 12/07/21 10:36 110 H 22 133/91 12/07/21 10:30 108 H 30 H 12/07/21 10:29 101 H 37 H 132/91 12/07/21 10:08 94 H 22 138/81 12/07/21 10:00 37.3 C 94 H 18 12/07/21 09:45 101 H 21 12/07/21 09:30 121 H 17 115/87 12/07/21 09:15 117 H 33 H 12/07/21 09:00 117 H 22 12/07/21 08:45 117 H 27 H Laboratory Results Laboratory Results - last 24 hr 12/05/21 12/07/21 12/07/21 00:15 05:33 05:33 WBC 6.02 RBC 4.68 L Hgb 14.6 Hct 42.4 MCV 90.6 MCH 31.2 MCHC 34.4 RDW Std Deviation 44.0 RDW Coeff of Teresita 13.4 Plt Count 104 L MPV 4.3 L Platelet Estimate Decreased L PT INR Sodium 133 L Potassium 3.4 L Chloride 101 Carbon Dioxide 24 Anion Gap 8 BUN 8 Creatinine 0.89 Est Cr Clr Drug Dosing 153.4 Est GFR ( Amer) 133.9 Est GFR (Non-Af Amer) 115.5 BUN/Creatinine Ratio 9.0 L Glucose 127 H Calcium 8.4 L Phosphorus 3.7 D Magnesium 2.1 Total Bilirubin 2.2 H AST 115 H ALT 115 H Alkaline Phosphatase 98 Total Protein 6.2 Albumin 3.4 Globulin 2.8 Albumin/Globulin Ratio 1.2 U Marijuana THC Carboxy 343 H Drug Screen Comment SEE NOTE 12/07/21 05:33 WBC RBC Hgb Hct MCV MCH MCHC RDW Std Deviation RDW Coeff of Teresita Plt Count MPV Platelet Estimate PT 10.4 INR 1.0 Sodium Potassium Chloride Carbon Dioxide Anion Gap BUN Creatinine Est Cr Clr Drug Dosing Est GFR ( Amer) Est GFR (Non-Af Amer) BUN/Creatinine Ratio Glucose Calcium Phosphorus Magnesium Total Bilirubin AST ALT Alkaline Phosphatase Total Protein Albumin Globulin Albumin/Globulin Ratio U Marijuana THC Carboxy Drug Screen Comment PG Care Time/CCT Total # of Minutes Spent Total Time Spent with Patient: Total time spent is greater than 50% in coordination of care (as documented) at patient's floor/unit and/or counseling patient: Coding Level of Care Code 11428 Subseq Hosp Care Lvl 2 Diagnoses Alcohol withdrawal F10.239 Complication of substance-induced condition: with unspecified complication Alcoholic hepatitis K70.10 Ascites presence: unspecified Hyponatremia E87.1 Anxiety F41.9 Elevated INR R79.1 Mood disorder F39 Hypokalemia E87.6 Hypophosphatemia E83.39 Alcoholic gastritis K29.20 Ataxia R27.0 (1) Alcohol withdrawal Complication of substance-induced condition: with unspecified complication Qualified Code(s): F10.239 - Alcohol dependence with withdrawal, unspecified (2) Alcoholic hepatitis Ascites presence: unspecified Qualified Code(s): K70.10 - Alcoholic hepatitis without ascites
[2021-12-08] MEDS: LORazepam 2 MG/1 ML VIAL IV PRN (01:32)
[2021-12-08] MEDS ORDERED: chlordiazePOXIDE HCl 5 MG CAP PO SCH (03:45)
[2021-12-08 05:52] LABS: Platelet Count 99 K/uL (130-400)
[2021-12-08 06:07] LABS: Albumin Globulin Ratio 1.3 (0.9-2); Albumin Level 3.3 gm/dl (3.4-5.0); BUN Creatinine Ratio 11.1 (10-20); Bilirubin,Total 1.1 mg/dl (0.2-1.0); Calcium 8.7 mg/dl (8.5-10.1); Creatinine Clr Calc Pharmacy 152.5 ml/min; Est GFR (African American) 133.3 ml/min; Globulin 2.6 gm/dl (2.5-4.0); Total Protein 5.9 gm/dl (6.0-8.3)
[2021-12-08] MEDS: NSS + 20MEQ KCL 20 MEQ/1,000 ML BAG IV SCH (07:52)
[2021-12-08] MEDS: FOLIC ACID 1 MG in SYRINGE 9.8 ML IV SCH (07:54)
[2021-12-08] MEDS: THIAMINE HCL 300 MG in SODIUM CHLORIDE 0.9% 50 ML IV SCH (07:56)
[2021-12-08] MEDS: PANTOprazole 40 MG TAB PO SCH ×2 (09:16→21:08)
[2021-12-08] MEDS: PROPRANOLOL HCL 10 MG TAB PO SCH ×3 (09:16→21:08)
[2021-12-08] MEDS: CHLORDIAZEPOXIDE 5MG 4TH DOSE PO SCH ×2 (10:35→23:13)
--- NOTE | 2021-12-08 13:56 | Psychiatric Progress Note ---
Date of Service December 08, 2021 Impression / Recommendations Impression as per initial consult: 31 yo male with significant complications of chronic EToh use, failed own attempt to decrease intake, admit medically with significant LFT elevations and hyponatremia. I doubt that that degree of hyponatremia would be related to his short term use of an ssri. He told liaison last took 10 days ago, told me probably a month ago. 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 12/08/21: improved (1) Alcohol withdrawal: (2) Hyponatremia: (3) Anxiety: remains psychiatrically stable for rehab when medically cleared. still receiving prn Ativan on top of Librium taper at times, Vistaril typically less effective as prn for anxiety in these circumstances. Would like to wait to see what his next step is before initiating another antidepressant since won't work acutely for his anxiety anyway. Interval History Identifying Information This is a 31-year-old male with a history of alcohol abuse who presents to [facility] for evaluation of alcohol withdrawal in the context of 10 days of weening from ~17-20 drinks/day to 10-15 drinks/day. Chief Complaint "I just want to go to rehab." Review of Systems Notes denied SPRINGER/tremor/N/V. Easily tearful. Subjective Subjective Patient was seen & assessed and interval progress reviewed. Patient processed his situation with liaison for 30 min prior to my interaction with him and is expecting a meeting with a safety representative from the [facility]. He states he is physically feeling improved. Anxiety remains high. Ambivalent about restart of SSRI as "Lexapro didn't really help." States he was calling some hotels to make sure he has his "options open" if he were to be discharged spontaneously. Physical Exam Psychiatric Orientation: alert and oriented x 3 Apperance: appeared stated age Eye Contact: + fair eye contact Affect: + anxious affect Mood: + depressed mood Thought Process: + concrete thought process Thought Content: reality based without delusions Suicidal Thoughts: denies suicidal thoughts Homicidal Thoughts: denies homicidal thoughts Hallucinations: no auditory hallucinations and no visual hallucinations Cognition: language grossly intact Vital Signs (Past 24 Hours) Last Vital Signs Temp 37.0 C 12/08/21 10:42 Pulse 85 04/28/22 10:42 Resp 20 12/08/21 10:42 BP 132/76 12/08/21 10:42 Pulse Ox 98 12/08/21 10:42 Results & Data ([facility]) Laboratory Results Laboratory Results - last 24 hr 12/08/21 12/08/21 05:08 05:08 Plt Count 99 L Sodium 135 L Potassium 4.0 Chloride 102 Carbon Dioxide 26 Anion Gap 7 BUN 10 Creatinine 0.90 Est Cr Clr Drug Dosing 152.5 Est GFR ( Amer) 133.3 Est GFR (Non-Af Amer) 115.0 BUN/Creatinine Ratio 11.1 Glucose 155 H Calcium 8.7 Total Bilirubin 1.1 H AST 74 H ALT 95 H Alkaline Phosphatase 82 Total Protein 5.9 L Albumin 3.3 L Globulin 2.6 Albumin/Globulin Ratio 1.3 Current Inpatient Medications Current Inpatient Medications: Current Inpatient Medications Chlordiazepoxide HCl (Chlordiazepoxide 5mg 4th Dose) 5 mg PO Q12H [facility]; Protocol Stop: 12/08/21 23:31 Last Admin: 12/08/21 10:35 Dose: 5 mg Documented by: Thiamine HCl 300 mg/ Sodium (Chloride) 53 mls @ 106 [facility] [place]: 01/05/22 08:59 Last Infusion: 12/08/21 08:30 Dose: Infused Documented by: Folic Acid 1 mg/ Syringe 10 mls @ 5 mls[facility] [place]: 01/04/22 08:59 Last Admin: 12/08/21 07:54 Dose: 5 mls/min Documented by: Potassium Chloride/Sodium Chloride (Normal Saline W/20 Meq Kcl) 20 meq in 1,000 mls @ 100 mls/hr IV .Q10H [facility]; Protocol Stop: 01/06/22 10:14 Last Admin: 12/08/21 07:52 Dose: Not Given Documented by: Lorazepam (Lorazepam 2 Mg/1 Ml Vial) 1 mg IV UD PRN; Protocol PRN Reason: EtOH Withdrawl AWSS Score 6,7 Stop: 01/04/22 05:49 Last Admin: 12/08/21 01:32 Dose: 1 mg Documented by: Lorazepam (Lorazepam 2 Mg/1 Ml Vial) 2 mg IV UD PRN; Protocol PRN Reason: EtOH Withdrawl AWSS Score 8,9 Stop: 01/04/22 05:49 Last Admin: 12/07/21 10:08 Dose: 2 mg Documented by: Pantoprazole Sodium (Pantoprazole 40 Mg Tab) 40 mg PO BID [facility] Stop: 01/04/22 08:59 Last Admin: 12/08/21 09:16 Dose: 40 mg Documented by: Propranolol HCl (Propranolol Hcl 10 Mg Tab) 10 mg PO TID [facility] Stop: 01/07/22 08:59 Last Admin: 12/08/21 09:16 Dose: 10 mg Documented by: (1) Alcohol withdrawal Complication of substance-induced condition: with unspecified complication Qualified Code(s): F10.239 - Alcohol dependence with withdrawal, unspecified
--- NOTE | 2021-12-08 18:45 | Hospitalist Progress Note ---
Date of Service December 08, 2021 Assessment & Plan (1) Alcohol withdrawal: Plan: Stable. No DTs. Previously was drinking 17-20 drinks/day. Had cut back to 10-15 drinks/day in the week leading up to admission. Last etoh was 12/04/21 ~1800. Continue Librium taper. Continue AWSS Ativan IV prn protocol. Continue folate, thiamine, multivitamin. (2) Alcoholic hepatitis: Plan: LFTs improving. Maddrey's DF <30 thus no methylprednisolone therapy needed. Liver u/s without radiographic features of cirrhosis. Repeat LFTs in am. (3) Hyponatremia: Plan: Serum Na 127 at admission. 135 today. May have had element of tea/toast phenomenon in the setting of severe alcoholism. Repeat BMP am. Fluids have been stopped. (4) Anxiety: Plan: Severe. Long-standing per his father. Psych consult appreciated. 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 Adding inderal TID which will treat his HTN & anxiety. (5) Elevated INR: Plan: Likely vitamin K deficient. s/p vitamin K 2.5mg x 1 and 5mg x 1 with normalization of INR. (6) Mood disorder: Plan: At minimum has substance-induced mood d/o from alcoholism. Cannot rule out primary depression. Psych consult appreciated. B12/TSH noted to be normal. (7) Hypokalemia: Plan: Replaced and resolved. (8) Hypophosphatemia: Plan: Replaced and resolved. (9) Alcoholic gastritis: Plan: Presumed. Symptoms improved. PPI twice daily. (10) Ataxia: Plan: likely due to alcohol withdrawal syndrome -- but ataxia is focal on right side cerebellar insult from chronic etoh use? ataxia of right arm is improved today. cont to follow carefully. (11) Thrombocytopenia: Plan: mild. repeat CBC with diff in am. Plan: pt's father extensively updated by phone this week collateral information obtained from his father - see my prior note PTRADHA a sales representative cash registers from [facility] gov't to visit with patient to discuss options for alcohol rehab following discharge Admission and Anticipated Discharge Date Admission Date: December 05, 2021 Subjective nursing staff report that his ataxia/balance issues are improved today he continues to feel anxious, continues to have muscle aches, and having some sweats also with tremors he reported to me that he is still quite interested in attending inpatient rehab post-d/c he realizes that he can't get his life back unless he maintains sobriety able to eat/drink today voiding fine telemetry overnight wnl Review of Systems Review of Systems: gen - no fevers, some sweats/hot & cold chills CV - no chest pain pulmonary - no dyspnea GI - no nausea/emesis eyes - mild blurry vision for 2-3 days but no visual field cuts psych - occasional hallucinations Physical Exam Physical Exam: gen - flat affect, awake, alert neck - no JVD eyes - horizontal nystagmus present but improved from prior exams mouth - MMM heart - RRR, s1 s2, no murmur lungs - CTA b/l abd - soft NT ND BS+ neuro - mild tremors; ataxia with finger/nose/finger maneuver on right but improved from prior exam; finger/nose/finger on left intact ext - no edema, pulses 2+ b/l psych - a/o x 3, flat affect, tearful Results & Data Results & Data ([facility]) Vital Signs (Past 12 Hours) Vital Signs Temp Pulse Resp BP BP Pulse Ox 12/08/21 15:40 37.3 C 82 16 148/81 H 98 12/08/21 10:42 37.0 C 85 20 132/76 98 12/08/21 08:00 37.3 C 89 18 136/85 98 Laboratory Results Laboratory Results - last 24 hr 12/08/21 12/08/21 05:08 05:08 Plt Count 99 L Sodium 135 L Potassium 4.0 Chloride 102 Carbon Dioxide 26 Anion Gap 7 BUN 10 Creatinine 0.90 Est Cr Clr Drug Dosing 152.5 Est GFR ( Amer) 133.3 Est GFR (Non-Af Amer) 115.0 BUN/Creatinine Ratio 11.1 Glucose 155 H Calcium 8.7 Total Bilirubin 1.1 H AST 74 H ALT 95 H Alkaline Phosphatase 82 Total Protein 5.9 L Albumin 3.3 L Globulin 2.6 Albumin/Globulin Ratio 1.3 PG Care Time/CCT Total # of Minutes Spent Total Time Spent with Patient: Total time spent is greater than 50% in coordination of care (as documented) at patient's floor/unit and/or counseling patient: Coding Level of Care Code 93524 Subseq Hosp Care Lvl 2 Diagnoses Alcohol withdrawal F10.239 Complication of substance-induced condition: with unspecified complication Alcoholic hepatitis K70.10 Ascites presence: unspecified Hyponatremia E87.1 Anxiety F41.9 Elevated INR R79.1 Mood disorder F39 Hypokalemia E87.6 Hypophosphatemia E83.39 Alcoholic gastritis K29.20 Ataxia R27.0 Thrombocytopenia D69.6 (1) Alcohol withdrawal Complication of substance-induced condition: with unspecified complication Qualified Code(s): F10.239 - Alcohol dependence with withdrawal, unspecified (2) Alcoholic hepatitis Ascites presence: unspecified Qualified Code(s): K70.10 - Alcoholic hepatitis without ascites
[2021-12-09] MEDS: LORazepam 2 MG/1 ML VIAL IV PRN (01:37)
[2021-12-09] MEDS ORDERED: OLANZapine 10 MG/2.1 ML SDV IM STA (03:31)
--- NOTE | 2021-12-09 04:45 | Communication Note ---
Date of Service: December 09, 2021 Notified by patient's RN around 0300 that patient was weeping uncontrollably and in distress. At the bedside, patient was visibly distraught and tearful. He reported to me that he was seeing a Manual Tester in the room, as well as a woman in the corner who would not go away. To his RN, he had also reported seeing shadows and hearing voices. These hallucinations were distressing to him. He reported that he wanted the anxiety to go away but nothing is helping. He worries he will never get better. BP ~120/90, HR 80, RR 16-20, afebrile. Distraught on exam but responsive to questioning. [id number] grossly in-tact, UE/LE strength is 5/5. Psych- distraught but cooperative with increased tone and intermittent weeping; endorses visual/auditory hallucinations. Poor insight and judgement. Hallucinations- suspect alcoholic hallucinosis. No RX or metabolic abnormalities that would otherwise explain. No SUGAR MIXER deficits on exam. Given no responsiveness to Ativan, proceeded with Zyprexa 5mg IM x 1, which seemed to help relieve some of the anxiety and distress as intended. Continue thiamine. Monitor on telemetry. In close contact with RN Resident Activity Tracking Resident Involvement: Resident Care Provided Care Provided: Adult [facility]
[2021-12-09 07:34] LABS: Basophils # (auto) 0.04 K/uL (0-0.2); Basophils % (auto) 0.5 %; Eosinophils # (auto) 0.21 K/uL (0-0.5); Eosinophils % (auto) 2.8 %; Hemoglobin 13.5 g/dL (14.0-18.0); Immature Granulocytes # (auto) 0.01 K/uL (0.00-0.02); Immature Granulocytes % (auto) 0.1 %; Lymphocytes # (auto) 3.56 K/uL (1.2-3.4); Lymphocytes % (auto) 48.3 %; Mean Corpuscular Hemoglobin 31.7 pg (25-34); Mean Corpuscular Hgb Conc 33.8 g/dL (32-36); Mean Corpuscular Volume 93.9 fL (80-100); Mean Platelet Volume 12.8 fL (7.4-10.4); Monocytes # (auto) 0.48 K/uL (0.11-0.59); Monocytes % (auto) 6.5 %; Neutrophils # (auto) 3.07 K/uL (1.4-6.5); Neutrophils % (auto) 41.8 %; Platelet Count 119 K/uL (130-400); RDW Coefficient of Variation 13.3 % (11.5-14.5); RDW Standard Deviation 45.4 fL (36.4-46.3); Red Blood Count 4.26 M/uL (4.7-6.1); White Blood Count 7.37 K/uL (4.8-10.8)
[2021-12-09 07:57] LABS: Albumin Globulin Ratio 1.3 (0.9-2); Albumin Level 3.5 gm/dl (3.4-5.0); BUN Creatinine Ratio 15.1 (10-20); Bilirubin,Total 0.9 mg/dl (0.2-1.0); Calcium 8.8 mg/dl (8.5-10.1); Creatinine Clr Calc Pharmacy 159.5 ml/min; Est GFR (African American) 135.8 ml/min; Est GFR (Non-African American) 117.2 ml/min; Globulin 2.7 gm/dl (2.5-4.0); Potassium 3.6 mmol/L (3.5-5.1); Total Protein 6.2 gm/dl (6.0-8.3)
[2021-12-09] MEDS: FOLIC ACID 1 MG in SYRINGE 9.8 ML IV SCH (08:22)
[2021-12-09] MEDS: THIAMINE HCL 300 MG in SODIUM CHLORIDE 0.9% 50 ML IV SCH (08:22)
[2021-12-09] MEDS: PANTOprazole 40 MG TAB PO SCH ×2 (08:23→20:14)
[2021-12-09] MEDS: PROPRANOLOL HCL 10 MG TAB PO SCH ×3 (08:23→20:14)
--- NOTE | 2021-12-09 12:30 | Psychiatric Progress Note ---
Date of Service December 09, 2021 Impression / Recommendations Impression as per initial consult: 31 yo male with significant complications of chronic EToh use, failed own attempt to decrease intake, admit medically with significant LFT elevations and hyponatremia. I doubt that that degree of hyponatremia would be related to his short term use of an ssri. He told liaison last took 10 days ago, told me probably a month ago. 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 12/09/21: no psychosis, resolving protracted withdrawal (1) Alcohol withdrawal: (2) Anxiety: no additional recs at this time Dr. Cobb updated. Interval History Identifying Information This is a 31-year-old male with a history of alcohol abuse who presents to [facility] for evaluation of alcohol withdrawal in the context of 10 days of weening from ~17-20 drinks/day to 10-15 drinks/day. Chief Complaint ongoing anxiety Review of Systems Notes denies other than stated above Subjective Subjective Patient was seen & assessed and interval progress reviewed. Dr. Cobb also arrived at bedside during discussion of events overnight. Patient was treated with 1 dose of Zyprexa for ?protracted withdrawal/hallucinosis. Today patient is more describing perceptual disturbance. He has blurry vision/dry eyes and his glasses are broken, awakens in the middle of the night confused. He seems more hopeful that county will assist with rehab placement. Physical Exam Psychiatric Orientation: alert Apperance: appeared stated age Eye Contact: good eye contact Motor Behavior: no psychomotor agitation Speech: normal rate/rhythm/volume of speech Affect: + depressed affect and + anxious affect Thought Process: + concrete thought process Thought Content: reality based without delusions Suicidal Thoughts: denies suicidal thoughts Homicidal Thoughts: denies homicidal thoughts Hallucinations: no auditory hallucinations and no visual hallucinations Cognition: attention grossly intact and language grossly intact Estimated Intelligence: consistent with education level Insight: + limited insight Judgement: + limited judgement Vital Signs (Past 24 Hours) Last Vital Signs Temp 37.0 C 12/09/21 08:24 Pulse 72 12/09/21 08:24 Resp 14 12/09/21 08:24 BP 120/64 12/09/21 08:24 Pulse Ox 100 12/09/21 08:24 Results & Data ([facility]) Laboratory Results Laboratory Results - last 24 hr 12/09/21 12/09/21 06:36 06:36 WBC 7.37 RBC 4.26 L Hgb 13.5 L Hct 40.0 L MCV 93.9 MCH 31.7 MCHC 33.8 RDW Std Deviation 45.4 RDW Coeff of Teresita 13.3 Plt Count 119 L MPV 12.8 H D Immature Gran % (Auto) 0.1 Neut % (Auto) 41.8 Lymph % (Auto) 48.3 [place] % (Auto) 6.5 Eos % (Auto) 2.8 Baso % (Auto) 0.5 Neut # (Auto) 3.07 Lymph # (Auto) 3.56 H [place] # (Auto) 0.48 Eos # (Auto) 0.21 Baso # (Auto) 0.04 Immature Gran # (Auto) 0.01 Sodium 138 Potassium 3.6 Chloride 106 Carbon Dioxide 25 Anion Gap 7 BUN 13 Creatinine 0.86 Est Cr Clr Drug Dosing 159.5 Est GFR ( Amer) 135.8 Est GFR (Non-Af Amer) 117.2 BUN/Creatinine Ratio 15.1 Glucose 114 H Calcium 8.8 Total Bilirubin 0.9 AST 45 H ALT 78 H Alkaline Phosphatase 75 Total Protein 6.2 Albumin 3.5 Globulin 2.7 Albumin/Globulin Ratio 1.3 Current Inpatient Medications Current Inpatient Medications: Current Inpatient Medications Thiamine HCl 300 mg/ Sodium (Chloride) 53 mls @ 106 mls/hr IV QAM [facility] Stop: 01/05/22 08:59 Last Infusion: 12/09/21 09:02 Dose: Infused Documented by: Folic Acid 1 mg/ Syringe 10 mls @ 5 mls/min IV QAM [facility] Stop: 01/04/22 08:59 Last Admin: 12/09/21 08:22 Dose: 5 mls/min Documented by: Potassium Chloride/Sodium Chloride (Normal Saline W/20 Meq Kcl) 20 meq in 1,000 mls @ 100 mls/hr IV .Q10H [facility]; Protocol Stop: 01/06/22 10:14 Last Admin: 12/08/21 07:52 Dose: Not Given Documented by: Lorazepam (Lorazepam 2 Mg/1 Ml Vial) 1 mg IV UD PRN; Protocol PRN Reason: EtOH Withdrawl AWSS Score 6,7 Stop: 01/04/22 05:49 Last Admin: 12/09/21 01:37 Dose: 1 mg Documented by: Lorazepam (Lorazepam 2 Mg/1 Ml Vial) 2 mg IV UD PRN; Protocol PRN Reason: EtOH Withdrawl AWSS Score 8,9 Stop: 01/04/22 05:49 Last Admin: 12/07/21 10:08 Dose: 2 mg Documented by: Pantoprazole Sodium (Pantoprazole 40 Mg Tab) 40 mg PO BID [facility] Stop: 01/04/22 08:59 Last Admin: 12/09/21 08:23 Dose: 40 mg Documented by: Propranolol HCl (Propranolol Hcl 10 Mg Tab) 10 mg PO TID [facility] Stop: 01/07/22 08:59 Last Admin: 12/09/21 08:23 Dose: 10 mg Documented by: (1) Alcohol withdrawal Complication of substance-induced condition: with unspecified complication Qualified Code(s): F10.239 - Alcohol dependence with withdrawal, unspecified
[2021-12-09] MEDS: LORazepam 1 MG TAB PO PRN (20:14)
[2021-12-09] MEDS ORDERED: OLANZAPINE 2.5 MG TAB PO PRN (21:53)
--- NOTE | 2021-12-09 22:00 | Hospitalist Progress Note ---
Date of Service December 09, 2021 Assessment & Plan (1) Alcohol withdrawal: Plan: Stable. Improved. Again no evidence of DTs. Previously was drinking 17-20 drinks/day. Had cut back to 10-15 drinks/day in the week leading up to admission. Last etoh was 12/04/21 ~1800. Complete Librium taper. Continue AWSS Ativan IV prn protocol. Continue folate, thiamine, multivitamin. (2) Alcoholic hepatitis: Plan: LFTs improving/nearly normal. Liver u/s without radiographic features of cirrhosis. Repeat LFTs in 48 hours. (3) Hyponatremia: Plan: Serum Na 127 at admission. Resolved. May have had element of tea/toast phenomenon in the setting of severe alcoholism. Fluids have been stopped. (4) Anxiety: Plan: Severe. Long-standing dating back to childhood. Psych consult appreciated. 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 Added inderal TID which will treat his HTN & anxiety. Zyprexa worked well last pm for sleep/agitation/anxiety. Will order 2.5mg PO hs prn again for tonight. (5) Elevated INR: Plan: Likely vitamin K deficient. s/p vitamin K 2.5mg x 1 and 5mg x 1 with normalization of INR. (6) Mood disorder: Plan: At minimum has substance-induced mood d/o from alcoholism. Has severe generalized anxiety. Can't rule out agarophobia. Cannot rule out primary depression. Psych consult appreciated. B12/TSH noted to be normal. (7) Hypokalemia: Plan: Replaced and resolved. (8) Hypophosphatemia: Plan: Replaced and resolved. (9) Alcoholic gastritis: Plan: Presumed. Symptoms improved/resolved. PPI twice daily. (10) Ataxia: Plan: likely due to alcohol withdrawal syndrome -- but ataxia is focal on right side either way the ataxia today on right IS improved will continue to monitor closely. (11) Thrombocytopenia: Plan: mild. repeat CBC today acceptable. recheck platelets in 48 hours. Plan: pt's father extensively updated by phone this week collateral information obtained from his father - see my prior note PT, OT geno apprecaited dispo - inpatient etoh rehab after discharge blurry vision - some glucose levels have indeed been high will check a1c in am to r/o DM as cause of ocular complaints Admission and Anticipated Discharge Date Admission Date: December 05, 2021 Subjective patient feeling well today he received IM zyprexa last pm and he slept well this am eating well balance is improved when walking to bathroom no nausea or emesis he met with the [facility] [place] call center representative yesterday to discuss options for inpatient etoh rehab post-d/c and he is still very interested in such he is very motivated to go to rehab Review of Systems Review of Systems: gen - fatigue and some weakness eyes - blurry vision x 2 months cv - no cp pulm - no cough/dyspnea musculo - myalgias improved GI - no pain Physical Exam Physical Exam: gen - looks much better today; awake/alert/oriented neck - no JVD eyes - horizontal nystagmus nearly resolved; EOMI; visual [place] full by direct confrontation mouth - MMM heart - RRR, s1 s2, no murmur lungs - CTA b/l abd - soft NT ND BS+ neuro - minimal tremors; ataxia with finger/nose/finger maneuver on right nearly resolved; finger/nose/finger on left intact ext - no edema, pulses 2+ b/l Results & Data Results & Data ([facility]) Vital Signs (Past 12 Hours) Vital Signs Temp Pulse Resp BP Pulse Ox 12/09/21 19:54 36.4 C L 70 18 122/70 99 12/09/21 15:00 36.8 C 64 18 134/82 98 12/09/21 12:47 36.8 C 77 14 116/70 99 Laboratory Results Laboratory Results - last 24 hr 12/09/21 12/09/21 06:36 06:36 WBC 7.37 RBC 4.26 L Hgb 13.5 L Hct 40.0 L MCV 93.9 MCH 31.7 MCHC 33.8 RDW Std Deviation 45.4 RDW Coeff of Teresita 13.3 Plt Count 119 L MPV 12.8 H D Immature Gran % (Auto) 0.1 Neut % (Auto) 41.8 Lymph % (Auto) 48.3 [place] % (Auto) 6.5 Eos % (Auto) 2.8 Baso % (Auto) 0.5 Neut # (Auto) 3.07 Lymph # (Auto) 3.56 H [place] # (Auto) 0.48 Eos # (Auto) 0.21 Baso # (Auto) 0.04 Immature Gran # (Auto) 0.01 Sodium 138 Potassium 3.6 Chloride 106 Carbon Dioxide 25 Anion Gap 7 BUN 13 Creatinine 0.86 Est Cr Clr Drug Dosing 159.5 Est GFR ( Amer) 135.8 Est GFR (Non-Af Amer) 117.2 BUN/Creatinine Ratio 15.1 Glucose 114 H Calcium 8.8 Total Bilirubin 0.9 AST 45 H ALT 78 H Alkaline Phosphatase 75 Total Protein 6.2 Albumin 3.5 Globulin 2.7 Albumin/Globulin Ratio 1.3 PG Care Time/CCT Total # of Minutes Spent Total Time Spent with Patient: Total time spent is greater than 50% in coordination of care (as documented) at patient's floor/unit and/or counseling patient: Coding Level of Care Code 05676 Subseq Hosp Care Lvl 2 Diagnoses Alcohol withdrawal F10.239 Complication of substance-induced condition: with unspecified complication Alcoholic hepatitis K70.10 Ascites presence: unspecified Hyponatremia E87.1 Anxiety F41.9 Elevated INR R79.1 Mood disorder F39 Hypokalemia E87.6 Hypophosphatemia E83.39 Alcoholic gastritis K29.20 Ataxia R27.0 Thrombocytopenia D69.6 (1) Alcohol withdrawal Complication of substance-induced condition: with unspecified complication Qualified Code(s): F10.239 - Alcohol dependence with withdrawal, unspecified (2) Alcoholic hepatitis Ascites presence: unspecified Qualified Code(s): K70.10 - Alcoholic hepatitis without ascites
[2021-12-10] MEDS: FOLIC ACID 1 MG in SYRINGE 9.8 ML IV SCH (09:19)
[2021-12-10] MEDS: THIAMINE HCL 300 MG in SODIUM CHLORIDE 0.9% 50 ML IV SCH (09:19)
[2021-12-10] MEDS: PROPRANOLOL HCL 10 MG TAB PO SCH ×3 (09:19→20:25)
[2021-12-10] MEDS: PANTOprazole 40 MG TAB PO SCH ×2 (09:20→20:24)
[2021-12-10 09:24] LABS: Platelet Count 141 K/uL (130-400)
[2021-12-10 09:35] LABS: Estimated Average Glucose 137 mg/dl; Hemoglobin A1C 6.4 % (4.5-5.6)
--- NOTE | 2021-12-10 12:04 | Psychiatric Progress Note ---
Date of Service December 10, 2021 Impression / Recommendations Impression This is a 31 yo with a history of alcohol use admitted medically. Diagnostically consistent with alcohol use disorder as well as unspecified anxiety likely a combination of substance-induced as well as ABILIO. At this point risk of harm to self and others is slightly increased due to substance use with substance use treatment being the most significant modifiable risk factor to reduce acute and chronic risk. His acute risk is low given denial of SI, no hx of prior attempts, future-oriented and motivated for substance use treatment. Recommendation is for residential substance use treatment which he is agreeable to. Reviewed potential MAT options in future such as naltrexone. 12/10/21: -CM working on residential tx referrals and placement -Patient is not an imminent danger to self or others and does not meet criteria for involuntary psychiatric commitment, psychiatrically stable for discharge and for residential tx (1) Alcohol use disorder, moderate, dependence: (2) Anxiety: see above discussed with Dr. Yee Suicide Risk Level Suicide Risk Level: Low (q15 min observation checks) Interval History Identifying Information This is a 31-year-old man with a history of alcohol use disorder who presents to [facility] for evaluation of alcohol withdrawal in the context of 10 days of weening from ~17-20 drinks/day to 10-15 drinks/day.Psychiatry was consulted for recommendations and risk assessment after periods of tearfulness. Chief Complaint "I really want to go to rehab, they said maybe even today". Review of Systems Notes Endorses some difficulty with sleep, stable appetite. Subjective Subjective Patient was seen & assessed and interval progress reviewed. Ulises notes he is feeling better now that he is out of the acute withdrawal period. Does notice he can feel slightly more irritable and sleep is not as good but overall notes his mood is "good" and he denies any SI. C-SSRS was re-done by psych liason, I was present for this as well, and Ulises endorsed history of passive SI, especially with discomfort of alcohol withdrawal, but denied any recent or current active SI, denied any prior attempts and remains future-oriented. He noes many reasons for living, a long goal of "I want to live to be 89" and has been working on updating his [employer] profile to start looking for jobs after he completes residential tx. Discussed potential medication options, including naltrexone in the future, as LFTs stabilize and he likes the idea of discussing this with providers while at residential tx to help with long-term alcohol use avoidance. Physical Exam Psychiatric Orientation: alert and oriented x 3 Apperance: appropriately dressed and appropriately groomed Eye Contact: good eye contact Motor Behavior: no abnormal motor movements Speech: normal rate/rhythm/volume of speech Affect: euthymic affect Mood: + anxious mood; no depressed mood Thought Process: goal directed thought process Thought Content: reality based without delusions Suicidal Thoughts: denies suicidal thoughts Homicidal Thoughts: denies homicidal thoughts Hallucinations: no auditory hallucinations and no visual hallucinations Cognition: recent memory grossly intact, remote memory grossly intact, attention grossly intact and language grossly intact Estimated Intelligence: consistent with education level Insight: + fair insight Judgement: + fair judgement Vital Signs (Past 24 Hours) Last Vital Signs Temp 37.0 C 12/10/21 11:43 Pulse 75 12/10/21 11:43 Resp 17 12/10/21 11:43 BP 117/71 12/10/21 11:43 Pulse Ox 98 12/10/21 11:43 Results & Data ([facility]) Laboratory Results Laboratory Results - last 24 hr 12/10/21 12/10/21 09:14 09:14 Plt Count 141 Estimat Average Glucose 137 Hemoglobin A1c 6.4 H Current Inpatient Medications Current Inpatient Medications: Current Inpatient Medications Thiamine HCl 300 mg/ Sodium (Chloride) 53 mls @ 106 mls/hr IV QAM JOSE Stop: 01/05/22 08:59 Last Infusion: 12/10/21 10:22 Dose: Infused Documented by: Folic Acid 1 mg/ Syringe 10 mls @ 5 mls/min IV QAM JOSE Stop: 01/04/22 08:59 Last Admin: 12/10/21 09:19 Dose: 5 mls/min Documented by: Potassium Chloride/Sodium Chloride (Normal Saline W/20 Meq Kcl) 20 meq in 1,000 mls @ 100 mls/hr IV .Q10H JOSE; Protocol Stop: 01/06/22 10:14 Last Admin: 12/08/21 07:52 Dose: Not Given Documented by: Lorazepam (Lorazepam 2 Mg/1 Ml Vial) 1 mg IV UD PRN; Protocol PRN Reason: EtOH Withdrawl AWSS Score 6,7 Stop: 01/04/22 05:49 Last Admin: 12/09/21 01:37 Dose: 1 mg Documented by: Lorazepam (Lorazepam 2 Mg/1 Ml Vial) 2 mg IV UD PRN; Protocol PRN Reason: EtOH Withdrawl AWSS Score 8,9 Stop: 01/04/22 05:49 Last Admin: 12/07/21 10:08 Dose: 2 mg Documented by: Lorazepam (Lorazepam 1 Mg Tab) 1 mg PO Q4H PRN PRN Reason: anxiety Stop: 01/08/22 16:07 Last Admin: 12/09/21 20:14 Dose: 1 mg Documented by: Olanzapine (Olanzapine 2.5 Mg Tab) 2.5 mg PO HS PRN PRN Reason: severe anxiety/agitation Stop: 01/09/22 20:59 Pantoprazole Sodium (Pantoprazole 40 Mg Tab) 40 mg PO BID [facility] Stop: 01/04/22 08:59 Last Admin: 12/10/21 09:20 Dose: 40 mg Documented by: Propranolol HCl (Propranolol Hcl 10 Mg Tab) 10 mg PO TID [facility] Stop: 01/07/22 08:59 Last Admin: 12/10/21 09:19 Dose: 10 mg Documented by:
[2021-12-10] MEDS: LORazepam 1 MG TAB PO PRN ×2 (14:14→20:23)
--- NOTE | 2021-12-10 19:53 | Hospitalist Progress Note ---
Date of Service December 10, 2021 Assessment & Plan (1) Alcohol withdrawal: Plan: Stable. Resolved. Completed librium taper. No DTs. Ataxia resolved. Previously was drinking 17-20 drinks/day. Had cut back to 10-15 drinks/day in the week leading up to admission. Last etoh was 12/04/21 ~1800. Continue AWSS Ativan IV prn protocol. Continue folate, thiamine, multivitamin. Plan after d/c - inpatient etoh rehab. (2) Alcoholic hepatitis: Plan: Nearly resolved. Liver u/s without radiographic features of cirrhosis. Fatty liver present. Repeat ast/alt in am. (3) Hyponatremia: Plan: Serum Na 127 at admission. Resolved. May have had element of tea/toast phenomenon in the setting of severe alcoholism. Fluids have been stopped. Eating/drinking well. (4) Anxiety: Plan: Severe. Long-standing dating back to childhood. Psych consult appreciated. This will need to be addressed as this is a primary route sales driver of his alcohol usage. Added inderal TID which will treat his HTN & anxiety. Switch to long-acting inderal in am. (5) Elevated INR: Plan: Likely vitamin K deficient. s/p vitamin K 2.5mg x 1 and 5mg x 1 with normalization of INR. (6) Mood disorder: Plan: At minimum has substance-induced mood d/o from alcoholism. Has severe generalized anxiety. Can't rule out agarophobia. Cannot rule out primary depression. Psych consult appreciated. B12/TSH noted to be normal. (7) Hypokalemia: Plan: Replaced and resolved. (8) Hypophosphatemia: Plan: Replaced and resolved. (9) Alcoholic gastritis: Plan: Presumed. Symptoms improved/resolved. PPI twice daily. (10) Ataxia: Plan: likely due to alcohol withdrawal syndrome -- resolved. (11) Thrombocytopenia: Plan: mild. improving. recheck platelets in 48 hours. (12) Prediabetes: Plan: a1c 6.4% discussed this with him today. change diet from regular to DM diet. defer on BSG checks for now. will provide DM education before discharge. Plan: pt's father extensively updated by phone earlier this week and again 12/10/21 collateral information obtained from his father on 12/06/21 PTRADHA appreciated dispo - inpatient etoh rehab after discharge Admission and Anticipated Discharge Date Admission Date: December 05, 2021 Subjective overall very good day today except for anxiety about "his transition" to inpatient rehab after hospital discharge he also did not sleep well last night eating robustly ataxia nearly resolved when ambulating he feels that most of the etoh withdrawal is resolved asks multiple questions about diet, his fatty liver, etc Review of Systems Review of Systems: gen - energy improved, eating well, no fevers cv - no chest pain pulm - no cough or dyspnea GI - no abd pain, no nausea, no emesis Physical Exam Physical Exam: gen - looks great today neck - no JVD eyes - horizontal nystagmus resolved;EOMI mouth - MMM heart - RRR, s1 s2, no murmur lungs - CTA b/l abd - soft NT ND BS+ neuro - tremors fully resolved; no ataxia finger/nose/finger maneuver b/l hands ext - no edema, pulses 2+ b/l psych - calm, alert, oriented x 3 Results & Data Results & Data ([facility]) Vital Signs (Past 12 Hours) Vital Signs Temp Pulse Pulse Resp BP Pulse Ox 12/10/21 19:25 36.6 C 71 18 123/63 98 12/10/21 15:12 36.7 C 70 18 130/68 98 12/10/21 11:43 37.0 C 75 17 117/71 98 12/10/21 08:00 69 12/10/21 07:55 37.3 C 81 18 126/80 99 Laboratory Results Laboratory Results - last 24 hr 12/10/21 12/10/21 09:14 09:14 Plt Count 141 Estimat Average Glucose 137 Hemoglobin A1c 6.4 H PG Care Time/CCT Total # of Minutes Spent Total Time Spent with Patient: Total time spent is greater than 50% in coordination of care (as documented) at patient's floor/unit and/or counseling patient: Coding Level of Care Code 97530 Subseq Hosp Care Lvl 2 Diagnoses Alcohol withdrawal F10.239 Complication of substance-induced condition: with unspecified complication Alcoholic hepatitis K70.10 Ascites presence: unspecified Hyponatremia E87.1 Anxiety F41.9 Elevated INR R79.1 Mood disorder F39 Hypokalemia E87.6 Hypophosphatemia E83.39 Alcoholic gastritis K29.20 Ataxia R27.0 Thrombocytopenia D69.6 Prediabetes R73.03 (1) Alcohol withdrawal Complication of substance-induced condition: with unspecified complication Qualified Code(s): F10.239 - Alcohol dependence with withdrawal, unspecified (2) Alcoholic hepatitis Ascites presence: unspecified Qualified Code(s): K70.10 - Alcoholic hepatitis without ascites
[2021-12-10] MEDS: traZODone HCL 50 MG TAB PO SCH (20:23)
[2021-12-10] MEDS: THIAMINE HCL 100 MG TAB PO SCH (20:48)
[2021-12-11] MEDS: LORazepam 1 MG TAB PO PRN ×4 (01:26→21:29)
[2021-12-11 06:58] LABS: BUN Creatinine Ratio 9.1 (10-20); Est GFR (African American) 142.1 ml/min; Est GFR (Non-African American) 122.6 ml/min; Potassium 3.7 mmol/L (3.5-5.1)
[2021-12-11] MEDS: CEROVITE ADV FORMULA TAB PO SCH (08:31)
[2021-12-11] MEDS: THIAMINE HCL 100 MG TAB PO SCH ×2 (08:31→21:30)
[2021-12-11] MEDS: PANTOprazole 40 MG TAB PO SCH ×2 (08:31→21:30)
[2021-12-11] MEDS: FOLIC ACID 1 MG TAB PO SCH (08:31)
[2021-12-11] MEDS: PROPRANOLOL HCL 60 MG LA CAP PO SCH (10:08)
--- NOTE | 2021-12-11 12:12 | Hospitalist Progress Note ---
Date of Service December 11, 2021 Assessment & Plan (1) Salt craving: Plan: random cortisol is low at 4 plan cosyntropin stim test in AM NPO x 10 hours prior to such discussed the test w/ him if normal - given his "tanning" - consider hemachromatosis w/u (2) Alcohol withdrawal: Plan: Resolved. Completed librium taper. No DTs. Ataxia resolved. Previously was drinking 17-20 drinks/day. Had cut back to 10-15 drinks/day in the week leading up to admission. Last etoh was 12/04/21 ~1800. Continue folate, thiamine, multivitamin. Plan after d/c - inpatient etoh rehab. (3) Alcoholic hepatitis: Plan: Nearly resolved. Liver u/s without radiographic features of cirrhosis. Fatty liver present. ast/alt cont to improve. see #1 above. (4) Hyponatremia: Plan: Serum Na 127 at admission. Resolved. May have had element of tea/toast phenomenon in the setting of severe alcoholism. Fluids have been stopped. Eating/drinking well. (5) Anxiety: Plan: Severe. Long-standing dating back to childhood. Psych consult appreciated. This will need to be addressed as this is a primary local truck driver of his alcohol usage. Added inderal TID which will treat his HTN & anxiety. Switch to long-acting inderal today. (6) Elevated INR: Plan: Likely vitamin K deficient. s/p vitamin K 2.5mg x 1 and 5mg x 1 with normalization of INR. (7) Mood disorder: Plan: At minimum has substance-induced mood d/o from alcoholism. Has severe generalized anxiety. Can't rule out agarophobia. Cannot rule out primary depression. Psych consult appreciated. B12/TSH noted to be normal. (8) Hypokalemia: Plan: Replaced and resolved. (9) Hypophosphatemia: Plan: Replaced and resolved. (10) Alcoholic gastritis: Plan: Presumed. Symptoms improved/resolved. PPI twice daily. switch to once daily at d/c. (11) Ataxia: Plan: likely due to alcohol withdrawal syndrome -- resolved. (12) Thrombocytopenia: Plan: mild. improving. now 141. check 1 more time prior to d/c. (13) Prediabetes: Plan: a1c 6.4% DM diet. defer on BSG checks for now. will provide DM education before discharge. Plan: pt's father extensively updated by phone earlier this week and again 12/10/21 collateral information obtained from his father on 12/06/21 PT, RADHA lora appreciated dispo - inpatient etoh rehab after discharge Sunday? Sunday? d/c tele - move to med/surg Admission and Anticipated Discharge Date Admission Date: December 05, 2021 Subjective having anxiety at times and panic attacks at times responds to IV ativan withdrawal is complete with no tremors, sweats, etc still committed to going to rehab as I was leaving his room he said "why do I crave so much salt?" he also mentioned a family member told him that he looked bray recently even though he doesn't go out in sun denies chronic lightheadedness Review of Systems Review of Systems: gen - no fever or sweats; eating well cv - no orthopnea, cp, palpitations gi - no vomiting or nausea pulm - no dyspnea Physical Exam Physical Exam: gen - looks great today, NAD, calm/no anxiety while talking w/ him neck - no JVD heart - RRR, s1 s2, no murmur lungs - CTA b/l abd - soft NT ND BS+ neuro - tremors fully resolved; no ataxia finger/nose/finger maneuver b/l hands ext - no edema, pulses 2+ b/l psych - calm, alert, oriented x 3 Results & Data Results & Data ([facility]) Vital Signs (Past 12 Hours) Vital Signs Temp Pulse Pulse Resp BP Pulse Ox 12/11/21 11:38 36.7 C 76 18 118/74 97 12/11/21 08:05 37.0 C 79 17 114/68 98 12/11/21 08:00 68 12/11/21 03:57 36.6 C 74 18 121/69 96 Laboratory Results cortisol level - random - 4 PG Care Time/CCT Total # of Minutes Spent Total Time Spent with Patient: Total time spent is greater than 50% in coordination of care (as documented) at patient's floor/unit and/or counseling patient: Coding Level of Care Code 91042 Subseq Hosp Care Lvl 2 Diagnoses Alcohol withdrawal F10.239 Complication of substance-induced condition: with unspecified complication Alcoholic hepatitis K70.10 Ascites presence: unspecified Hyponatremia E87.1 Anxiety F41.9 Elevated INR R79.1 Mood disorder F39 Hypokalemia E87.6 Hypophosphatemia E83.39 Alcoholic gastritis K29.20 Ataxia R27.0 Thrombocytopenia D69.6 Prediabetes R73.03 Salt craving R63.8 (1) Alcohol withdrawal Complication of substance-induced condition: with unspecified complication Qualified Code(s): F10.239 - Alcohol dependence with withdrawal, unspecified (2) Alcoholic hepatitis Ascites presence: unspecified Qualified Code(s): K70.10 - Alcoholic hepatitis without ascites
[2021-12-11] MEDS: traZODone HCL 50 MG TAB PO SCH (21:29)
[2021-12-12] MEDS: THIAMINE HCL 100 MG TAB PO SCH ×2 (07:53→21:00)
[2021-12-12] MEDS: PANTOprazole 40 MG TAB PO SCH ×2 (07:53→21:00)
[2021-12-12] MEDS: CEROVITE ADV FORMULA TAB PO SCH (07:53)
[2021-12-12] MEDS: PROPRANOLOL HCL 60 MG LA CAP PO SCH (07:54)
[2021-12-12] MEDS: FOLIC ACID 1 MG TAB PO SCH (07:54)
[2021-12-12] MEDS ORDERED: COSYNTROPIN 1 MCG in SYRINGE 0 ML IV ONE (08:00)
[2021-12-12] MEDS: LORazepam 1 MG TAB PO PRN ×2 (10:51→20:59)
[2021-12-12] MEDS: traZODone HCL 50 MG TAB PO SCH (20:59)
--- NOTE | 2021-12-13 00:21 | Hospitalist Progress Note ---
Date of Service December 12, 2021 Assessment & Plan (1) Salt craving: Plan: random cortisol was low at 4 However, he has passed his cosyntropin stim test today (stimulated to >18). He was hyponatremic at time of admission - the salt cravings could have simply been due to "Tea/toast" hyponatremia (ie he was craving salt simply because he was indeed salt deficient). He reported hyperpigmentation/tanned skin despite not getting sun exposure. In light of severe fatty liver on liver u/s will check Fe studies -- r/o hemachromatosis. (2) Alcohol withdrawal: Plan: Resolved. Completed librium taper. No DTs. Ataxia fully resolved. Previously was drinking 17-20 drinks/day chronically. . Had cut back to 10-15 drinks/day in the week leading up to admission. Last etoh was 12/04/21 ~1800. Continue folate, thiamine, multivitamin. Plan after d/c - inpatient etoh rehab. VERY motivated to go to rehab. Excellent insight into his alcoholism and the risk of cirrhosis from such. (3) Alcoholic hepatitis: Plan: Nearly resolved. Liver u/s without radiographic features of cirrhosis. Fatty liver present. ast/alt cont to improve. repeat ast/alt in am. see above in #1 re: iron studies. (4) Hyponatremia: Plan: Serum Na 127 at admission. Resolved. May have had element of tea/toast phenomenon in the setting of severe alcoholism. Fluids have been stopped. Eating/drinking well. (5) Anxiety: Plan: Severe. Long-standing dating back to childhood. Psych consult appreciated. This will need to be addressed as this is a primary limb driver of his alcohol usage. Added inderal TID for his HTN & anxiety. Switched to long-acting inderal and tolerating such. Cont PO ativan prn anxiety. (6) Elevated INR: Plan: Present on admission. INR 1.5. Likely vitamin K deficient. s/p vitamin K 2.5mg x 1 and 5mg x 1 with normalization of INR. (7) Mood disorder: Plan: At minimum has substance-induced mood d/o from alcoholism. Has chronic, severe generalized anxiety. Can't rule out agarophobia. Cannot rule out primary depression. Psych consult appreciated. B12/TSH noted to be normal. Defer any med management to psych. Trazodone for insomnia. (8) Hypokalemia: Plan: Replaced and resolved. (9) Hypophosphatemia: Plan: Replaced and resolved. (10) Alcoholic gastritis: Plan: Presumed. Symptoms improved/resolved. PPI twice daily. switch to once daily at d/c. (11) Ataxia: Plan: likely due to alcohol withdrawal syndrome -- resolved. (12) Thrombocytopenia: Plan: mild. improving. now 141. repeat cbc in am tomorrow. (13) Prediabetes: Plan: a1c 6.4% DM diet. defer on BSG checks for now. will provide DM education before discharge. Plan: pt's father extensively updated by phone earlier this week and again 12/10/21 collateral information obtained from his father on 12/06/21 PT, RADHA lora appreciated dispo - inpatient etoh rehab after discharge [facility] is involved in his placement for etoh inpatient rehab. This is in process (see social work notes from today). insurance issues - by report an MA application is pending. Admission and Anticipated Discharge Date Admission Date: December 05, 2021 Subjective no events overnight eating well no etoh withdrawal symptoms he endorses ongoing anxiety because of concern of not getting into inpatient rehab also, there has been insurance issues with his current insurance coverage he otherwise feels ok Review of Systems Review of Systems: gen - no fevers, no chills cv - no cp pulm - no dyspnea GI - no nausea, emesis, abd pain, diarrhea Physical Exam Physical Exam: gen - looks great today, NAD neck - no JVD heart - RRR, s1 s2, no murmur lungs - CTA b/l abd - soft NT ND BS+ neuro - tremors fully resolved ext - no edema, pulses 2+ b/l psych - a/o x 3, no significant anxiety Results & Data Results & Data ([facility]) Vital Signs (Past 12 Hours) Vital Signs Temp Pulse Resp BP Pulse Ox 12/12/21 22:17 36.6 C 71 16 91/62 L 100 12/12/21 14:22 36.4 C L 74 16 108/69 98 Laboratory Results Laboratory Results - last 24 hr 12/12/21 07:44 Cortisol Response baseline 11.8; post-stimulation 21.4 PG Care Time/CCT Total # of Minutes Spent Total Time Spent with Patient: Total time spent is greater than 50% in coordination of care (as documented) at patient's floor/unit and/or counseling patient: Coding Level of Care Code 99102 Subseq Hosp Care Lvl 2 Diagnoses Salt craving R63.8 Alcohol withdrawal F10.239 Complication of substance-induced condition: with unspecified complication Alcoholic hepatitis K70.10 Ascites presence: unspecified Hyponatremia E87.1 Anxiety F41.9 Elevated INR R79.1 Mood disorder F39 Hypokalemia E87.6 Hypophosphatemia E83.39 Alcoholic gastritis K29.20 Ataxia R27.0 Thrombocytopenia D69.6 Prediabetes R73.03 (1) Alcohol withdrawal Complication of substance-induced condition: with unspecified complication Qualified Code(s): F10.239 - Alcohol dependence with withdrawal, unspecified (2) Alcoholic hepatitis Ascites presence: unspecified Qualified Code(s): K70.10 - Alcoholic hepatitis without ascites
[2021-12-13 07:10] LABS: Hematocrit (blood only) 41.3 % (42-52); Hemoglobin 13.7 g/dL (14.0-18.0); Mean Corpuscular Hemoglobin 30.5 pg (25-34); Mean Corpuscular Hgb Conc 33.2 g/dL (32-36); Mean Platelet Volume 11.1 fL (7.4-10.4); Platelet Count 280 K/uL (130-400); RDW Coefficient of Variation 13.3 % (11.5-14.5); RDW Standard Deviation 44.1 fL (36.4-46.3); Red Blood Count 4.49 M/uL (4.7-6.1); White Blood Count 6.49 K/uL (4.8-10.8)
[2021-12-13 07:46] LABS: Ferritin 354.7 ng/ml (8-388)
[2021-12-13] MEDS: CEROVITE ADV FORMULA TAB PO SCH (08:06)
[2021-12-13] MEDS: THIAMINE HCL 100 MG TAB PO SCH ×2 (08:06→20:35)
[2021-12-13] MEDS: PANTOprazole 40 MG TAB PO SCH ×2 (08:07→20:35)
[2021-12-13] MEDS: FOLIC ACID 1 MG TAB PO SCH (08:07)
[2021-12-13] MEDS: PROPRANOLOL HCL 60 MG LA CAP PO SCH (08:07)
[2021-12-13 09:17] LABS: BUN Creatinine Ratio 10.2 (10-20); Calcium 9.4 mg/dl (8.5-10.1); Creatinine Clr Calc Pharmacy 155.7 ml/min; Est GFR (African American) 134.5 ml/min; Est GFR (Non-African American) 116.1 ml/min; Potassium 4.1 mmol/L (3.5-5.1)
--- NOTE | 2021-12-13 14:37 | Hospitalist Progress Note ---
Date of Service December 13, 2021 Assessment & Plan (1) Salt craving: Plan: -random cortisol was low at 4 -However, he has passed his cosyntropin stim test today (stimulated to >18). -He was hyponatremic at time of admission - the salt cravings could have simply been due to "Tea/toast" hyponatremia (ie he was craving salt simply because he was indeed salt deficient). -He reported hyperpigmentation/tanned skin despite not getting sun exposure. -In light of severe fatty liver on liver u/s iron studies ordered which were all WNL, no c/f hemochromatosis (2) Alcohol withdrawal: Plan: Resolved. -Completed librium taper. No DTs. Ataxia fully resolved. -Previously was drinking 17-20 drinks/day chronically. -Had cut back to 10-15 drinks/day in the week leading up to admission. -Last etoh was 12/04/21 ~1800. -Continue folate, thiamine, multivitamin. -Plan after d/c - inpatient etoh rehab. VERY motivated to go to rehab. Excellent insight into his alcoholism and the risk of cirrhosis from such. (3) Alcoholic hepatitis: Plan: Nearly resolved. -Liver u/s without radiographic features of cirrhosis. Fatty liver present. -ast normalized today, alt still downtrending and also near normal (4) Hyponatremia: Plan: -Serum Na 127 at admission. Resolved. -May have had element of tea/toast phenomenon in the setting of severe alcoholism. -Fluids have been stopped. -Eating/drinking well. (5) Anxiety: Plan: Severe and long-standing dating back to childhood. -Psych consulted, appreciate assistance -This will need to be addressed as this is a primary cat driver of his alcohol usage. -Added inderal TID for his HTN & anxiety. Switched to long-acting inderal and tolerating such. -Cont PO ativan prn anxiety. (6) Elevated INR: Plan: Present on admission, INR 1.5. -Likely vitamin K deficient. -s/p vitamin K 2.5mg x 1 and 5mg x 1 with normalization of INR. (7) Mood disorder: Plan: -At minimum has substance-induced mood d/o from alcoholism. -Has chronic, severe generalized anxiety. -Can't rule out agarophobia. -Cannot rule out primary depression. -Psych consult appreciate--defer med management to them -Continue Trazodone for insomnia. (8) Alcoholic gastritis: Plan: -Presumed with resolution of symptoms. -PPI twice daily. -switch to once daily at d/c. (9) Thrombocytopenia: Plan: RESOLVED (10) Prediabetes: Plan: a1c 6.4% DM diet. -defer on BSG checks for now. -will provide DM education before discharge. Plan: pt's father extensively updated by phone earlier this week and again 12/10/21 dispo - inpatient etoh rehab after discharge [facility] is involved in his placement for etoh inpatient rehab. This is in process (see social work notes from today). insurance issues - by report an MA application is pending. Admission and Anticipated Discharge Date Admission Date: December 05, 2021 Subjective Patient seen on daily rounds this morning. He is resting in his room, offers no new complaints/concerns. He admits to ongoing anxiety because of concern of not getting into inpatient rehab. Review of Systems Review of Systems: All systems reviewed and are unremarkable except as noted in HPI and below. Denies fever, chills, fatigue, headache, nasal congestion, sore throat, cough, chest pain, shortness of breath, palpitations, orthopnea, PND, abdominal pain, n/v/d, constipation, dysuria, hematuria, frequency, back pain, joint pain or swelling, easy bruising or bleeding, skin lesions or rashes. Physical Exam Physical Exam: GENERAL: 31 yo well-developed, well-nourished WM. NAD. LUNGS: Clear to auscultation bilaterally. No W/R/R. CARDIOVASCULAR: Regular rate and rhythm. No M/G/R. No JVD. ABDOMEN: Soft, non-tender and non-distended. BS normal x 4 quad. EXTREMITIES: No edema. Non-tender. Peripheral pulses +2/4. NEUROLOGIC: A&O x3. PSYCHIATRIC: Cooperative. Appropriate mood and affect. SKIN: Warm, dry, intact. No rashes or lesions. Results & Data Results & Data ([facility]) Vital Signs (Past 12 Hours) Vital Signs Temp Pulse Resp BP Pulse Ox 12/13/21 07:49 36.6 C 63 15 114/76 99 Laboratory Results Liver Ultrasound 12/05/21 04:07 US liver LIMITED ABDOMEN CLINICAL HISTORY: transaminitis, etoh abuse. COMPARISON: None. TECHNIQUE: Multiple grayscale and color images of the right upper quadrant of the abdomen. FINDINGS: The study is limited as the patient was having tremors during the examination. The patient's body habitus also limits the study along with overlying bowel gas. Pancreas: The imaged portion of the pancreas is within normal limits with no focal mass or peripancreatic fluid collection identified. Liver: The liver demonstrates increased heterogeneous echogenicity characteristic of fatty infiltration. The liver is at the upper limits of normal in size measuring 18 cm. There is no evidence for a focal mass. There is no intrahepatic biliary duct dilatation. Gallbladder: The gallbladder is well distended with evidence for sludge present within the lumen of the gallbladder. No evidence for wall thickening, pericholecystic edema or calculi seen. There was reportedly a negative sonographic Swann sign. Common Bile Duct: (CBD): It is normal in size measuring 3 mm. Inferior Vena Cava (IVC): The imaged IVC is patent. Right kidney: There is no evidence for hydronephrosis, calculus or gross renal mass. The kidney is normal in size. IMPRESSION: 1. Limited examination as described. 2. Evidence for fatty infiltration of the liver. 3. Evidence for sludge within the gallbladder. ACT 112: Negative or not required by law. Electronically signed by: Esteban Borden M.D. 12/05/2021 9:01 AM PG Care Time/CCT Total # of Minutes Spent Total Time Spent with Patient: Total time spent is greater than 50% in coordination of care (as documented) at patient's floor/unit and/or counseling patient: Coding Level of Care Code 44201 Subseq Hosp Care Lvl 2 Diagnoses Salt craving R63.8 Alcohol withdrawal F10.239 Complication of substance-induced condition: with unspecified complication Alcoholic hepatitis K70.10 Ascites presence: unspecified Hyponatremia E87.1 Anxiety F41.9 Elevated INR R79.1 Mood disorder F39 Alcoholic gastritis K29.20 Thrombocytopenia D69.6 Prediabetes R73.03 (1) Alcohol withdrawal Complication of substance-induced condition: with unspecified complication Qualified Code(s): F10.239 - Alcohol dependence with withdrawal, unspecified (2) Alcoholic hepatitis Ascites presence: unspecified Qualified Code(s): K70.10 - Alcoholic hepatitis without ascites
[2021-12-13] MEDS ORDERED: SIMETHICONE 40 MG/0.6 ML 30ML PO ONE (20:04)
[2021-12-13] MEDS ORDERED: ACETAMINOPHEN 500 MG TAB PO PRN (20:04)
[2021-12-13] MEDS: traZODone HCL 50 MG TAB PO SCH (20:52)
[2021-12-14 06:36] LABS: Albumin Globulin Ratio 1.4 (0.9-2); Albumin Level 3.8 gm/dl (3.4-5.0); BUN Creatinine Ratio 7.1 (10-20); Bilirubin,Total 0.5 mg/dl (0.2-1.0); Calcium 9.2 mg/dl (8.5-10.1); Creatinine Clr Calc Pharmacy 161.2 ml/min; Est GFR (African American) 136.5 ml/min; Est GFR (Non-African American) 117.7 ml/min; Globulin 2.7 gm/dl (2.5-4.0); Magnesium 2.1 mg/dl (1.7-2.4); Potassium 3.9 mmol/L (3.5-5.1); Total Protein 6.5 gm/dl (6.0-8.3)
[2021-12-14] MEDS: THIAMINE HCL 100 MG TAB PO SCH (09:10)
[2021-12-14] MEDS: PANTOprazole 40 MG TAB PO SCH (09:10)
[2021-12-14] MEDS: LORazepam 1 MG TAB PO PRN (09:10)
[2021-12-14] MEDS: FOLIC ACID 1 MG TAB PO SCH (09:11)
[2021-12-14] MEDS: PROPRANOLOL HCL 60 MG LA CAP PO SCH (09:11)
[2021-12-14] MEDS: CEROVITE ADV FORMULA TAB PO SCH (09:11)
--- NOTE | 2021-12-14 11:16 | Discharge Summary ---
Date of Service December 14, 2021 Admission HPI Per Admitting Provider This is a 31-year-old male with a history of alcohol abuse who presents to [facility] for evaluation of alcohol withdrawal. 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 Patient says that over the last 10 days, he is been trying to wean himself off of alcohol. He says at the beginning of the month, his baseline was consuming about 750 cc rye whiskey per day (17 drinks); he then wean to 325 cc rye whiskey per day (about 9 drinks), thereafter to 3-4 four locos (15-20 standard drinks), followed by (within the last 10 days) ~6 twisted teas (5% EtOH) / day with some four lokos intermixed and Guiness beer. His last drink was 12/04/2021 at 1800. He says he has consumed CBD oil over this time as well. No recreational drugs. Over the last 10 days, he does report that he has had intermittent nausea with vomiting. He denies hematemesis. Does say that he has had waxing and waning abdominal pain associated with his drinking. He has not been able to keep much down because of the nausea. Patient also reports that he did have a single bowel movement with some blood intermixed yesterday, but he has had this before from hemorrhoidal source. At present, his most irritating symptoms are the tremor and nausea. He denies any descriptions of hallucinations at present. He does endorse a history of hallucinations with alcohol withdrawal in the past. He denies any formal history of alcohol withdrawal seizures. He denies being hospitalized in the past for withdrawal. He has attended Alcoholic Anonymous in the past. To the emergency physician, he stated that his alcohol abuse likely started as a result of his anxiety. His longest sober period was approx. 75 days. In the ED, patient found to be tachycardic to the 120s, with regular respiratory rate, hypertension to 140/80, saturating appropriately on room air. On admission, patient found to have hemoglobin 18.8, MCV 88, INR 1.5, sodium 127/CL 82, anion gap 16, glucose 203, total bilirubin 2.9, AST 173, ALT 215, ALP 109, albumin 3.7. Urine is orange and cloudy in appearance with trace leuk esterase, negative red blood cells, pH 8.5. Urine THC resulted positive. Alcohol level on admission was 222. He received a total of 45 mg of diazepam in the ED with minimal relief of symptoms and persistent ongoing tachycardia. Given his extensive drinking history, poor response to diazepam, and high risk for DTs, attending physician did speak with on-call reception, who accepted patient to ICU. Principal Diagnosis 1. Acute ETOH withdrawal 2. Alcoholic Hepatitis--resolved 3. Hyponatremia--resolved 4. Transaminitis d/t #2--resolved 5. Pre-diabetic Discharge Exam GENERAL: 31 yo well-developed, well-nourished WM. NAD. LUNGS: Clear to auscultation bilaterally. No W/R/R. CARDIOVASCULAR: Regular rate and rhythm. No M/G/R. No JVD. ABDOMEN: Soft, non-tender and non-distended. BS normal x 4 quad. EXTREMITIES: No edema. Non-tender. Peripheral pulses +2/4. NEUROLOGIC: A&O x3. PSYCHIATRIC: Cooperative. Appropriate mood and affect. SKIN: Warm, dry, intact. No rashes or lesions. Discharge Data Allergies Allergy/AdvReac Type Severity Reaction Status Date / Time No Known Allergies Allergy Verified 12/04/21 23:18 Consultations 12/05/21 03:12 ED Decision to Admit Stat 12/05/21 05:34 Consult Medicine Assistant Routine 12/05/21 06:41 Consult Behavioral Health Liaison Routine 12/05/21 10:13 Consult Psychiatry Routine Ordered Studies Liver Ultrasound 12/05/21 04:07 US liver LIMITED ABDOMEN CLINICAL HISTORY: transaminitis, etoh abuse. COMPARISON: None. TECHNIQUE: Multiple grayscale and color images of the right upper quadrant of the abdomen. FINDINGS: The study is limited as the patient was having tremors during the examination. The patient's body habitus also limits the study along with overlying bowel gas. Pancreas: The imaged portion of the pancreas is within normal limits with no focal mass or peripancreatic fluid collection identified. Liver: The liver demonstrates increased heterogeneous echogenicity characteristic of fatty infiltration. The liver is at the upper limits of normal in size measuring 18 cm. There is no evidence for a focal mass. There is no intrahepatic biliary duct dilatation. Gallbladder: The gallbladder is well distended with evidence for sludge present within the lumen of the gallbladder. No evidence for wall thickening, pericholecystic edema or calculi seen. There was reportedly a negative sonographic Swann sign. Common Bile Duct: (CBD): It is normal in size measuring 3 mm. Inferior Vena Cava (IVC): The imaged IVC is patent. Right kidney: There is no evidence for hydronephrosis, calculus or gross renal mass. The kidney is normal in size. IMPRESSION: 1. Limited examination as described. 2. Evidence for fatty infiltration of the liver. 3. Evidence for sludge within the gallbladder. ACT 112: Negative or not required by law. Electronically signed by: Esteban Borden M.D. 12/05/2021 9:01 AM Hospital Course (1) Salt craving: -random cortisol was low at 4 -However, he has passed his cosyntropin stim test today (stimulated to >18). -He was hyponatremic at time of admission - the salt cravings could have simply been due to "Tea/toast" hyponatremia (ie he was craving salt simply because he was indeed salt deficient). -He reported hyperpigmentation/tanned skin despite not getting sun exposure. -In light of severe fatty liver on liver u/s iron studies ordered which were all WNL, no c/f hemochromatosis (2) Alcohol withdrawal: Resolved. -Completed librium taper. No DTs. Ataxia fully resolved. -Previously was drinking 17-20 drinks/day chronically. -Had cut back to 10-15 drinks/day in the week leading up to admission. -Last etoh was 12/04/21 ~1800. -Continue folate, thiamine, multivitamin. -Plan after d/c - inpatient etoh rehab. VERY motivated to go to rehab. Excellent insight into his alcoholism and the risk of cirrhosis from such. (3) Alcoholic hepatitis: RESOLVED -Liver u/s without radiographic features of cirrhosis. Fatty liver present. -AST/ALT have completely normalized (4) Hyponatremia: -Serum Na 127 at admission. Resolved. -May have had element of tea/toast phenomenon in the setting of severe alcoholis m. -Fluids given upfront -Eating/drinking well. (5) Anxiety: Severe and long-standing dating back to childhood. -Psych consulted, appreciate assistance -This will need to be addressed as this is a primary racing car driver of his alcohol usage. -Added inderal TID for his HTN & anxiety. Switched to long-acting inderal and tolerating such. -Cont PO ativan prn anxiety. (6) Elevated INR: Present on admission, INR 1.5. -Likely vitamin K deficient. -s/p vitamin K 2.5mg x 1 and 5mg x 1 with normalization of INR. (7) Mood disorder: -At minimum has substance-induced mood d/o from alcoholism. -Has chronic, severe generalized anxiety. -Can't rule out agarophobia. -Cannot rule out primary depression. -Psych consult appreciate--defer med management to them -Continue Trazodone for insomnia. (8) Alcoholic gastritis: -Presumed with resolution of symptoms. -PPI twice daily. -switch to once daily at d/c. (9) Thrombocytopenia: RESOLVED (10) Prediabetes: a1c 6.4% DM diet. -defer on BSG checks for now. -will provide DM education before discharge. Patient is medically and hemodynamically stable for discharge to inpatient alcohol rehabilitation. [facility] [place]. Recommend that he establish care with a PCP upon d/c and follow up closely with them to ensure his chronic conditions (prediabetes, HTN, and his anxiety) are monitored and controlled. Above plan of care has been d/w attending, Dr. Wilian Marquez, who has also seen and evaluated this patient. Total Time Total Time Spent Total Time Spent (In Minutes): >30 minutes Discharge Plan Discharge Items Patient Disposition: Drug & Alcohol Rehab Reason For Visit: ALCOHOL WITHDRAWL Discharge Diagnosis: acute alcohol withdrawal Activity: Resume your previous activity Non-emergency contact: Primary Care Provider Call non-emergency contact if: you have any medication questions and your symptoms worsen Follow-up/Referrals: PCP,NO [Primary Care Provider] - Diet: Regular Addtl Attending Provider Instructions: You have been hospitalized due to symptoms related to alcohol withdrawal. At this point, you have made it through the acute phase of withdrawal. The most important next step is going to be going to inpatient alcohol rehabilitation in order to have success in abstaining from alcohol. For your anxiety, you have been started on a medication called Inderal (which also helps manage your blood pressure) and you are tolerating well. We would advise you to continue this medication upon discharge in addition to the Lexapro that you were taking prior to this hospitalization as well as your Trazodone. Please note, your Trazodone dose has been decreased from 100mg take before bed to 50mg. Oral Ativan was also utilized as needed for your anxiety symptoms. * Recommend continuing the following supplements: Thiamine 100mg daily, Folic Acid 1mg daily, and a daily Multivitamin You have also been placed on a medication to help suppress gastric acid called Protonix. We would advise you to also continue this medication upon discharge. This should be taken in the morning approximately 30 minutes before eating or drinking anything. It was determine that you are considered "pre-diabetic." We would recommend that you follow dietary modifications (watching carbohydrate and sugar intake) and incorporate exercise into your daily regimen. By exercising, even for 30 minutes once a day, this will also help boost your mood. It is strongly recommended that you establish care with a primary care provider and follow up with them closely upon your discharge from Alcohol rehabilitation. In the event of any questions or concerns, please contact the nonemergency number listed on your discharge paperwork. In the event of medical emergency, call 911. Pending Studies at Discharge: No Stand-Alone Forms: My [facility] Skilled Items Patient informed of condition?: Yes DNR: No Discharge Level of Care: Other Communicable Disease: No Discharge Prognosis: Improving Lines: None Urinary Catheter: No Medications and DC Order Prescriptions: New trazodone 50 mg Tablet 50 mg PO HS Qty: 30 RF: 0 propranolol 60 mg Capsule,Extended Release 24 Hr 60 mg PO QAM Qty: 30 RF: 0 thiamine HCl (vitamin B1) 100 mg Tablet 100 mg PO DAILY Qty: 30 RF: 0 pantoprazole 40 mg Tablet,Delayed Release (Dr/Ec) 40 mg PO DAILY Qty: 30 RF: 0 folic acid 1 mg Tablet 1 mg PO QAM Qty: 30 RF: 0 Cerovite Senior 0.4 mg-300 mcg- 250 mcg Tablet 1 tab PO QAM Qty: 30 RF: 0 Continued escitalopram oxalate [Lexapro] 10 mg Tablet 0 mg PO DAILY RF: 0 Discontinued trazodone 100 mg Tablet 0 mg PO HS RF: 0 Discharge Orders: Discharge Order (Routine); Ordered 12/14/21 Ordered By: Leny Vazquez/Other Patient Handouts: Prediabetes, 5 Steps for Eating Healthier Admission Data Admit Date/Time: 12/05/21 03:39 Attending Provider: Wilian Marquez Admit Provider: Melvin Yanes Primary Care Provider: PCP,NO Other Providers: Patricia Esquivel ; Jaya Mathews ; Elisabet Perkins ; Radha Owen ; Sonam Garcia Other Interventions: Discharge Summary Assessment (RN) Last Done: 12/14/21 14:55 Supervising Physician Co-Signing Physician Notes I supervised Leny Bosch PA-C on this admission. I interviewed and examined the patient independently of her. The plan is as written in the her note except for any following changes/exceptions: None Doing well. No further withdrawal. Plan to go to [facility] for inpatient alcohol rehab. Coding Level of Care Code D/C DAY MANAGEMENT >30 MINS Diagnoses Salt craving R63.8 Alcohol withdrawal F10.239 Complication of substance-induced condition: with unspecified complication Alcoholic hepatitis K70.10 Ascites presence: unspecified Hyponatremia E87.1 Anxiety F41.9 Elevated INR R79.1 Mood disorder F39 Alcoholic gastritis K29.20 Thrombocytopenia D69.6 Prediabetes R73.03
== END 2021-12-14 17:17 | disposition alcohol treatment (31) | DRG 897 ==
LOC: ED 22:51 → SUATTDRO 12-05 03:39 → 1E 12-05 03:39 → 2E 12-09 14:52 → 3E 12-11 16:20